=== PATIENT | male | born 1975 | race Caucasian/White ===

== ENCOUNTER 2024-12-05 10:36 | Inpatient (IN) | payer BC, SELFPAY ==
[2024-12-05] VITALS (12 sets, daily range): BP systolic 114–154; BP diastolic 77–110; BMI 27.6
--- NOTE | 2024-12-05 07:41 | ED.GENMED ---
Addendum entered and electronically signed by LUIS FERNANDO Dean 12/05/24 13:06:
Cardiology evaluated patient, Dr. Mendez does recommend additional imaging including ultrasound of bilateral lower extremities for elevated D-dimer along with sed rate and CRP considering possible myocarditis, will also check COVID and flu
Original Note:
History of Present Illness
General
Chief Complaint: Chest Problem
Source: patient
Exam Limitations: none
Time Seen by Provider: 12/05/24 07:40
Nursing documentation reviewed up to this point in time: agreed with
History of Present Illness
History of Present Illness:
49-year-old male presents to the ER for evaluation. Patient reports for the past several weeks he has noted that he is very short winded with working out which is new for him. He does not have a family doctor and does not have this evaluated. He
also reports he has been anxious over his symptoms and has been waking up very early every morning around 430 this morning. Patient woke up this morning and continues to feel shortness of breath is which is what prompted him to come to the ER. He
has no associated chest pain with symptoms. He denies any recent fever or chills. He was sick 2 weeks ago. No prior history of PE DVT. [place], denies any lower extremity swelling.
He does not smoke.
Review of Systems
Review of Systems
Allergies reviewed?: Yes
All Other Systems: ROS reviewed and negative except as documented in HPI and ROS
Constitutional: Reports no symptoms; Denies fever, fatigue or chills
EENT: Reports no symptoms
Respiratory: Reports trouble breathing
Cardiac: Reports no symptoms; Denies chest pain, diaphoresis, palpitations or syncope
ABD/GI: Reports no symptoms
: Reports no symptoms
Musculoskeletal: Reports no symptoms
Skin: Reports no symptoms
Neurological: Reports no symptoms
Psychiatric: Reports no symptoms
Phy Exam
General Physical Exam
General Presentation: no apparent distress
General age: appears stated age
General Skin: warm and dry
General Habitus: normal
General Mental: alert
General Hydration: appears well hydrated
Cardiovascular Exam
Cardiovascular Exam: tachycardia
Pulmonary Exam
Pulmonary Exam: no respiratory distress and other (crackles to right base and right middle lobe )
Neurological Exam
Neurological Exam: alert and oriented x3
Musculoskeletal Exam
Musculoskeletal Exam: full ROM
Skin Exam
Skin Exam: normal color and warm/dry
Psychiatric Exam
Psychiatric Exam: normal mood/affect
Course
Orders/Labs/Results
Orders:
Orders
12/05/24 07:12
EKG [Electrocardiogram (*1)] Urgent
Reason for Study: Tachycardia
12/05/24 07:13
EKG- Treatment ONCE
12/05/24 07:36
Complete Blood Count/With Diff Urgent
Comprehensive Metabolic Panel Urgent
D-Dimer Urgent
NT-proBNP Urgent
Comment: ADD ON
Troponin I Urgent
12/05/24 07:49
Chest [CR Chest - 2 Views ] Urgent
Comment:
Reason For Exam: sob
12/05/24 08:08
Add On- LAB Urgent
Tests Added?: bnp
12/05/24 08:57
CT Chest PE Study Urgent
Comment:
Reason For Exam: sob
Abnormal Lab Results
12/05/24
07:36
WBC 11.3 H 10^3/uL
(4.8-10.8)
MCH 32.7 H pg
(27.0-31.0)
Abs Immat Gran (auto) 0.1 H 10^3/uL
(0-0.05)
Absolute Neuts (auto) 8.3 H 10^3/uL
(1.4-6.5)
Absolute Monos (auto) 0.9 H 10^3/uL
(0.1-0.6)
Lymphocytes % 15.9 L %
(20.5-51.1)
D-Dimer 0.66 H ug/mlFEU
(0.00-0.50)
Sodium 124 L mmol/L
(135-145)
Chloride 89 L mmol/L
(98-107)
Glucose 150 H mg/dl
(70-99)
Total Bilirubin 1.7 H mg/dl
(0.2-1.3)
12/05/24 07:36
12/05/24 07:36
Vital Signs
Initial and Last Documented VS:
Initial Vital Signs
Temp Pulse Resp BP Pulse Ox
97.7 F 124 18 141/99 100
12/05/24 07:10 12/05/24 07:10 12/05/24 07:10 12/05/24 07:10 12/05/24 07:10
Last Documented Vital Signs
Temp Pulse Resp BP Pulse Ox
97.7 F 120 31 134/107 96
12/05/24 07:10 12/05/24 09:00 12/05/24 09:00 12/05/24 07:27 12/05/24 07:30
Poultry Pathologist consulted with Physician
Poultry Pathologist consulted with physician?: Yes
Name of Physician Consulted: Lorelei
MDM/Problems Addressed
Differential Diagnosis Includes:
Not limited to ACS, PE, CHF, illness
MDM/Problems Addressed:
Patient is a 49-year-old male with no past medical history presents for increasing shortness of breath over the past several weeks. Patient is no cardiac history does not smoke he has noticed shortness of breath with working out which is not
typical for patient. He presents tachycardic no lower extremity swelling however does have crackles throughout his lung hsu. Patient's BNP is elevated at 4300 his D-dimer was minimally bumped. CAT scan ordered and does show findings consistent
with heart failure/cardiomegaly. Patient was ordered Lasix. Case discussed with admitting hospitalist as well as cardiology. Instantly sodium was also found to be low at 124 with a normal potassium normal renal function.
*Radiology
Radiology exam reviewed: radiology read reviewed
*Pulse Oximetry
Patient hypoxic: no
*EKG
Interpreted by ED Provider?: Yes
Interpretation: abnormal
Comparison EKG: no comparison EKG present
Heart Rate: 120
Rate: tachycardiac
Rhythm: sinus
Ischemia: non-specific ST changes
*Critical Care Note
Total Time (30-74mins, 75-104mins- exclusive of procedures): Not Applicable
ED Attending Note
-
Portions of this chart may have been created with voice recognition software.� Occasional wrong word or��sound alike� substitutions may have occurred due to the inherent limitations of voice recognition software.
Discharge Plan
Departure
Patient Disposition: Admit
Date of Disposition: 12/05/24
Time of Disposition: 09:59
Admit to: Telemetry
Admit to doctor: hospitalist
Presentation/result/management discussed w/ accepting MD/DO: Hospitalist
Patient with high blood pressure during this ER visit?: Yes
Condition: Fair
Covid-19: Not Applicable
Discharge Problem:
Congestive heart failure (CHF)
Referrals:
UNKNOWN - PT DOES,NOT KNOW [Family Provider] -
Interventions
Interventions:
*Risk Screen - Suicide Last Done: 12/05/24 07:38
*General Assessment Last Done: 12/05/24 07:38
*Neglect/Abuse Screening Last Done: 12/05/24 07:38
*ED- Fall Risk Assessment Last Done: 12/05/24 07:38
*ED COVID-19 Vaccine History Last Done: 12/05/24 07:38
ED- Cardiac Assessment Last Done: 12/05/24 07:38
ED- Pulmonary Assessment Last Done: 12/05/24 07:38
Discharge Date and Time
Print Language: MALIAN
[2024-12-05 07:51] LABS: % Basophils 0.8 % (0-2); % Eosinophils 1.4 % (0-6); % Immature Granulocytes 0.5 % (0-0.5); % Lymphocytes 15.9 % (20.5-51.1); % Monocytes 8.3 % (1.7-9.3); % Neutrophils 73.1 % (42.2-75.2); Absolute Basophils 0.1 10^3/uL (0-0.2); Absolute Eosinophils 0.2 10^3/uL (0-0.7); Absolute Immature Granulocytes 0.1 10^3/uL (0-0.05); Absolute Lymphocytes 1.8 10^3/uL (1.2-3.4); Absolute Monocytes 0.9 10^3/uL (0.1-0.6); Absolute Neutrophils 8.3 10^3/uL (1.4-6.5); Hematocrit 44.9 % (39.0-52.0); Hemoglobin 16.1 g/dL (13.0-18.0); Mean Corp Hgb Conc. 35.9 g/dL (33.0-37.0); Mean Corpuscular Hgb 32.7 pg (27.0-31.0); Mean Corpuscular Volume 91.1 fL (80.0-94.0); Nucleated Red Blood Cells % 0 % (-); Platelet Count 268 10^3/uL (130-400); Red Blood Cell Count 4.93 10^6/uL (4.70-6.10); Red Cell Dist. Width 11.9 % (11.5-14.5); White Blood Cell Count 11.3 10^3/uL (4.8-10.8)
[2024-12-05 08:03] LABS: ALT (SGPT) 40 U/L (0-50); AST (SGOT) 50 U/L (17-59); Albumin 3.8 g/dl (3.5-5.0); Alkaline Phosphatase 63 U/L (38-126); Blood Urea Nitrogen 10 mg/dl (9-20); Calcium 8.9 mg/dl (8.4-10.2); Carbon Dioxide 23 mmol/L (22-30); Chloride 89 mmol/L (98-107); Glucose 150 mg/dl (70-99); Potassium 4.8 mmol/L (3.5-5.1); Sodium 124 mmol/L (135-145); Total Bilirubin 1.7 mg/dl (0.2-1.3); Total Protein 6.3 g/dl (6.3-8.2); eGFR > 60.00
[2024-12-05 08:14] LABS: Troponin I 0.031 ng/ml
[2024-12-05 08:50] LABS: D-Dimer 0.66 ug/mlFEU (0.00-0.50)
[2024-12-05 08:52] LABS: NT-proBNP 4300 pg/ml
[2024-12-05] MEDS: LASIX 40 MG IV ×3 (10:05→22:03)
--- NOTE | 2024-12-05 10:31 | HPS.HSE ---
Family Physician
-
Family Physician: NOT KNOW UNKNOWN - PT DOES
Chief Complaint
-
Dyspnea on exertion
History of Present Illness
49-year-old male with no past medical history here complaining of dyspnea on exertion for the past 2 weeks. No chest pain. Denies ankle swelling. Has had a hard time getting his workouts done due to shortness of breath, usually goes for 3 mile
runs 5 days a week.
He states he had flulike symptoms 2 weeks ago with bodyaches and cough but resolved. Not sure if he had a fever. Did not do COVID testing.
Woke up at 4 AM this morning feeling anxious and short of breath and came into the emergency room.
Denies past medical history. Does not have a primary care doctor. Not on medications at home.
He works as a chiropractor.
Medical History
Past Medical History
Past Medical History: Reports None
Past Surgical History: Reports Orthopedic
Social History
Tobacco: Former Smoker (Quit smoking 30 years ago)
Alcohol: Occasional
Drug: None
Employment: Employed
Family History
Family History: Not pertinent
Allergies / Home Medications
Allergies reflects when Allergies were last updated in [employer].
Home Medications with original date entered in [employer]
Allergy/Medication List:
Allergies
Allergy/AdvReac Type Severity Reaction Status Date / Time
clindamycin Allergy Unknown Verified 12/05/24 08:48
none
Review of Systems
-
History Source: Patient
A 12 point ROS was completed and negative except as noted: Yes
Physical Exam
Vital Signs
Vital Signs
Temp Pulse Resp BP Pulse Ox
97.7 F 122 16 144/101 96
12/05/24 07:10 12/05/24 10:06 12/05/24 10:11 12/05/24 10:06 04/18/25 10:06
Physical Exam
General: Well Developed, Well Nourished, No Apparent Distress and Comfortable
HEENT: NormoCephalic, Anicteric and Moist mucous membranes
Respiratory: Rales
Cardiac: S1/S2 and Regular Rhythm
GI: Soft, Non Tender and Non Distended
Genito-urinary: Deferred by me
Musculoskeletal: No Clubbing, No Cyanosis and No Edema
Skin: Warm and Dry
Neuro: AO x 3
Hematologic/Lymphatic: No Lymphadenopathy
Psych: Calm
Laboratory Results
-
12/05/24 07:36
12/05/24 07:36
Laboratory Results
Total Bilirubin 1.7 mg/dl (0.2-1.3) H 12/05/24 07:36
AST 50 U/L (17-59) 12/05/24 07:36
ALT 40 U/L (0-50) 12/05/24 07:36
Alkaline Phosphatase 63 U/L (38-126) 12/05/24 07:36
Troponin I 0.031 ng/ml 12/05/24 07:36
Impression/Plan
-
Acute heart failure exacerbation -unknown type. Admit to IVU. Continue IV Lasix. Consult cardiology. First episode of congestive heart failure.
Anticipate ischemic workup and cardiac catheterization. Defer to cardiology.
EKG with sinus tachycardia, left atrial enlargement. Nonspecific ST-T wave changes laterally. Troponin negative.
CT chest negative for pulmonary embolism, cardiomegaly and moderate pulmonary edema noted. Small right pleural effusion. Small amount of coronary calcification.
I reviewed chest x-ray myself, cardiomegaly noted with bilateral pulmonary edema.
Elevated blood pressure -likely undiagnosed and untreated essential hypertension. Recommend monitoring blood pressure closely. Should start checking his pressures at home, discussed with patient.
Hyponatremia -suspect related to heart failure. Monitor sodium closely on diuretics.
Hyperglycemia -glucose 150 this morning. Check hemoglobin A1c.
Full code
--- NOTE | 2024-12-05 10:53 | CON.CAR ---
Addendum entered and electronically signed by Sahil Molina DO 12/05/24 16:34:
Addendum:
Echocardiogram demonstrated severely dilated LV with severely reduced LV systolic function EF of 20% with enlarged RV and reduced systolic function. PASP 70 to 75 mmHg with dilated aortic root sinus of Valsalva 4.0 cm. In the setting of patient's
sinus tachycardia and new cardiomyopathy, patient to benefit from right heart catheterization to better assess fluid status and monitor cardiac output in the setting of possible pending cardiogenic shock with newly diagnosed CM. I discussed the
case with Dr. Saul Jackson who agreed with right heart catheterization, aggressive diuresis over the weekend with careful monitoring by Ragley-Jimy catheter and when euvolemic, ischemic workup. Patient NPO.
Addendum entered and electronically signed by Sahil Molina DO 12/05/24 14:07:
Addendum:
Physical exam should read:
GENERAL: no acute distress, anxious
EYE: sclera anicteric
NECK: Supple, no JVD, no carotid bruit appreciated
ENT: normal nose, moist mucosal membranes
CARDIAC: Tachycardic rate and regular rhythm, +S1/S2, no murmur, rubs, or gallops
CHEST/PULMONARY: Normal effort, bibasilar crackles, nonlabored
ABDOMEN: Soft, without focal tenderness or distention
NEUROLOGICAL: Alert and oriented x3
SKIN: Warm and dry, no rash; no lower extremity swelling; no calf tenderness bilaterally
PSYCH: Normal and appropriate interaction.
Addendum entered and electronically signed by Sahil Molina DO 12/05/24 14:05:
I saw and examined the patient.
The Channel Turner's note was reviewed and I agree with the note.
Comment:
Patient resting comfortably in chair, notably anxious. Patient reported shortness of breath on admission however notes that this is improved and does not report any shortness of breath at this time. Patient denies chest discomfort/tightness,
palpitations, lightheadedness, dizziness, near-syncope, syncope, PND, orthopnea, edema, calf pain, or weakness. Patient states that he had an upper respiratory infection/6 weeks ago which is resolved. Additionally, he notes worsening shortness of
breath over that timeframe. Patient states that in discussion with his , he also experienced similar symptoms in September while skiing. He notes that his shortness of breath acutely worsened over the last week following a flight to [place] and
returned home.
GENERAL: no acute distress
EYE: sclera anicteric
NECK: Supple, no JVD, no carotid bruit appreciated
ENT: normal nose, moist mucosal membranes
CARDIAC: Regular rate and rhythm, +S1/S2, no murmur, rubs, or gallops
CHEST/PULMONARY: Normal effort, clear breath sounds
ABDOMEN: Soft, without focal tenderness or distention
NEUROLOGICAL: Alert and oriented x3
SKIN: Warm and dry, no rash
PSYCH: Normal and appropriate interaction.
Telemetry shows sinus rhythm/sinus tachycardia
EKG shows sinus tachycardia possible LVH possible lateral T wave abnormality
Troponin negative x2 (0.031-> 0.029), D-dimer elevated 0.66, BNP [address] scan showing no evidence of PE, cardiomegaly/moderate CHF with interstitial/alveolar edema, very small right pleural effusion. Small amount of coronary calcification, low-attenuation mediastinal adenopathy which may be related to CHF, question
posttraumatic changes of proximal left humerus
A/P as below
Discussed with the emergency room, recommending obtaining lower extremity Dopplers, inflammation markers, and infectious viral panel. Unclear etiology at this time for patient's acute volume overload/heart failure presentation. Possible, with
recent viral infection, this could relate to a myocarditis or possible nonischemic cardiomyopathy however etiology at this time is still unknown. Patient reporting improvement with diuretic therapy and denies any chest discomfort. Troponins
negative. Will obtain 2D echocardiogram to assess cardiac size, shape, function, and valvular anatomy. Pending results of echocardiogram, continue IV diuresis. Patient blood pressure also remains elevated which may play a role in this and
therefore, may benefit from initiation of BP therapy following result from echocardiogram (ANGEL/ARB/ARNI pending result).
Monitor on telemetry
Monitor intake and output, daily weight
Further recommendations to follow
Original Note:
Consultation
Consultation Request
Date/Time Consultation Requested: 12/05/2024
Date/Time Consultation Performed: 12/05/2024
Requesting Provider: Dr. Solis
Performing Provider: Sole Espinoza PA-C for Dr. John
Reason for Consultation: CHF
Medical History
-
History of Present Illness:
HPI: Zach is a 49-year-old male with no significant nature presents to ER for evaluation of worsening shortness of breath with exertion. He typically is very active and runs on a daily basis. 2 weeks ago he started to notice that he was becoming
more winded when running. He cut down the speed with which he was running, but continued to have symptoms. Then this week he states he was unable to tolerate running at all due to significant shortness of breath. This morning he woke up and felt
short of breath and significantly anxious, prompting ER evaluation. In ER, he was noted to be hypertensive and tachycardic. Lab work revealed elevated proBNP of 4300 with a troponin of 0.031. D-dimer also elevated slightly at 0.66. He had chest
x-ray and CT of chest. CT of chest was negative for PE, but did note moderate CHF. EKG revealed sinus tachycardia with heart rates in the 120s. He has been persistently tachycardic on review of telemetry. He denies any chest pain, palpitations,
dizziness, lightheadedness, lower extremity edema, diaphoresis, nausea, or fevers. He did have flulike symptoms 2 weeks ago that improved after a few days. He notes no prior history of hypertension, but states recently when he was at his dentist
his blood pressure was elevated. In ER currently he feels fairly well, but is somewhat anxious. Notes some improvement with his breathing in ER after given 1 dose of Lasix.
PMH:
None
Past Medical History
Past Medical History: Other (In HPI)
Past Surgical History: Orthopedic (ACL repair)
Social History
Tobacco: Former Smoker (Social smoker 30 years ago)
Alcohol: Occasional
Drug: None
Personal:
Living: With Family
Employment: Employed (chiropractor)
Family History
Family History: CAD (Father had GA)
Allergies / Home Medications
Allergy/AdvReac Type Severity Reaction Status Date / Time
clindamycin Allergy Unknown Verified 12/05/24 08:48
Review of Systems
-
History Source: Patient
All other systems: Negative unless noted
Physical Exam
Vital Signs
Temp Pulse Resp BP Pulse Ox
97.7 F 122 16 144/101 96
12/05/24 07:10 12/05/24 10:06 12/05/24 10:11 12/05/24 10:06 12/05/24 10:06
Lab Results
12/05/24 07:36
12/05/24 07:36
Troponin I 0.031 ng/ml 12/05/24 07:36
[id number]-[id number] Pept 4300 pg/ml 12/05/24 07:36
Physical Exam
General: Well Developed, Well Nourished and No Apparent Distress
HEENT: Normocephalic, Anicteric and Moist Mucous Membranes
Respiratory: Crackles and Non Labored Respirations
Cardiac: S1/S2 and Regular Rhythm
Musculoskeletal: No Clubbing, No Cyanosis and No Edema
Skin: Warm and Dry
Neuro: AO x 3 and Nonfocal/Grossly Intact
Psych: Calm
Impression / Plan
-
PCP: None
[employer] Application Administrator: None prior to admission
Impression:
Presented with BRADY
Acute HF unknown EF
Sinus tachycardia
Hyponatremia
Elevated BP
Elevated D-dimer
Echo 12/05/2024: Study pending
Plan:
-Presented with 2 weeks of progressive dyspnea on exertion. proBNP elevated at 4300. CT of chest with moderate CHF. No PE.
-Continue IV Lasix 40 mg BID. Creat stable at 1.1
-Follow daily weights, I&O's.
-CHF education
-Check echo. EF unknown.
-EKG reviewed, sinus tachycardia. Remains tachycardic on review of telemetry.
-TSH pending
-Troponin 0.031 by initial check. Repeat trop to ensure not rising.
-Follow Na w/ diuresis
-No prior h/o heart failure. Will need eventual ischemic evaluation. Possible LHC later this admission. Await trop trends and echo results.
-BP elevation noted. suspect undiagnosed HTN. Will likely start BB, possible ANGEL/ARB pending echo results.
-Hgb A1c pending.
-Check CVE in AM.
HPI: Zach is a 49-year-old male with no significant nature presents to ER for evaluation of worsening shortness of breath with exertion. He typically is very active and runs on a daily basis. 2 weeks ago he started to notice that he was becoming
more winded when running. He cut down the speed with which he was running, but continued to have symptoms. Then this week he states he was unable to tolerate running at all due to significant shortness of breath. This morning he woke up and felt
short of breath and significantly anxious, prompting ER evaluation. In ER, he was noted to be hypertensive and tachycardic. Lab work revealed elevated proBNP of 4300 with a troponin of 0.031. D-dimer also elevated slightly at 0.66. He had chest
x-ray and CT of chest. CT of chest was negative for PE, but did note moderate CHF. EKG revealed sinus tachycardia with heart rates in the 120s. He has been persistently tachycardic on review of telemetry. He denies any chest pain, palpitations,
dizziness, lightheadedness, lower extremity edema, diaphoresis, nausea, or fevers. He did have flulike symptoms 2 weeks ago that improved after a few days. He notes no prior history of hypertension, but states recently when he was at his dentist
his blood pressure was elevated. In ER currently he feels fairly well, but is somewhat anxious. Notes some improvement with his breathing in ER after given 1 dose of Lasix.
Data Reviewed
-
EKG: Tracing Personally Visualized and interpreted
Radiology: Report Reviewed by me
CT Scan: Report Reviewed by me
Labs: Labs Reviewed by me
[2024-12-05 11:09] LABS: Glycohemoglobin (HgbA1c) 5.4 % (4.0-5.6)
[2024-12-05 12:04] LABS: TSH 2.41 uIU/ml (0.47-4.68)
[2024-12-05 12:06] LABS: Troponin I 0.029 ng/ml
--- NOTE | 2024-12-05 12:11 | ED.GENMED ---
History of Present Illness
General
Chief Complaint: Chest Problem
Time Seen by Provider: 12/05/24 07:40
Course
Orders/Labs/Results
Orders:
Orders
12/05/24 07:12
EKG [Electrocardiogram (*1)] Urgent
Reason for Study: Tachycardia
12/05/24 07:13
EKG- Treatment ONCE
12/05/24 07:36
Complete Blood Count/With Diff Urgent
Comprehensive Metabolic Panel Urgent
D-Dimer Urgent
Glycohemoglobin (HgbA1c) Urgent
NT-proBNP Urgent
Comment: ADD ON
TSH Urgent
Troponin I Urgent
12/05/24 07:49
Chest [CR Chest - 2 Views ] Urgent
Comment:
Reason For Exam: sob
12/05/24 08:08
Add On- LAB Urgent
Tests Added?: bnp
12/05/24 08:57
CT Chest PE Study Urgent
Comment:
Reason For Exam: sob
12/05/24 Lunch
2 Gram Sodium [Sodium, 2 Gram]
At Your Request: Full Participation
Furosemide [Lasix] 40 mg IV NOW STA
12/05/24 10:09
Add On- LAB Routine
Tests Added?: TSH, HgbA1c
12/05/24 10:27
Admit/Transfer Patient As Directed
Co-Sign Provider:
Level of Care: Inpatient admission
Assign to:: IVU
Physician / Group: Will
Diagnosis: Acute CHF
Reason for Hospitalization: IV Lasix, cardiology consult
Expected length of stay greater than two midnights?: Yes
ELOS- Estimated Length of Stay in days: 3
I certify the patient meets the requirements for IP care: Yes
PRN Pain Medication Management As Directed
May give lesser potent ordered pain med per pt: Yes
preference::
Protocol:: Medication orders for pain may be administered in a
manner that supports deferring to patient preference
when the pt is:
- Requesting an ordered lesser potent pain medication.
Least to most potent pain medications are defined
as: acetaminophen < NSAID < tramadol < opioids
(morphine, oxycodone, hydromorphone).
- Requesting a lesser dose of the same medication IF
ORDERED.
- Requesting a less intrusive route of administration
if both routes are prescribed by the provider (PO <
IV).
12/05/24 10:28
Code Status As Directed
Resuscitation Status: Full Code
Abnormal Lab Results
12/05/24
07:36
WBC 11.3 H 10^3/uL
(4.8-10.8)
MCH 32.7 H pg
(27.0-31.0)
Abs Immat Gran (auto) 0.1 H 10^3/uL
(0-0.05)
Absolute Neuts (auto) 8.3 H 10^3/uL
(1.4-6.5)
Absolute Monos (auto) 0.9 H 10^3/uL
(0.1-0.6)
Lymphocytes % 15.9 L %
(20.5-51.1)
D-Dimer 0.66 H ug/mlFEU
(0.00-0.50)
Sodium 124 L mmol/L
(135-145)
Chloride 89 L mmol/L
(98-107)
Glucose 150 H mg/dl
(70-99)
Total Bilirubin 1.7 H mg/dl
(0.2-1.3)
12/05/24 07:36
12/05/24 07:36
Vital Signs
Initial and Last Documented VS:
Initial Vital Signs
Temp Pulse Resp BP Pulse Ox
97.7 F 124 18 141/99 100
12/05/24 07:10 12/05/24 07:10 12/05/24 07:10 12/05/24 07:10 12/05/24 07:10
Last Documented Vital Signs
Temp Pulse Resp BP Pulse Ox
97.7 F 117 16 144/101 95
12/05/24 07:10 12/05/24 12:00 12/05/24 12:03 12/05/24 10:06 12/05/24 11:00
MDM/Problems Addressed
Differential Diagnosis Includes:
Not limited to PE, ACS
MDM/Problems Addressed:
Patient is a 49-year-old male who presented with increasing dyspnea on exertion some mild chest tightness but no chest pain for the past several weeks. Patient is very active and this is all new for him. Findings are consistent with CHF. Patient
has an elevated BNP ; chest x-ray shows cardiomegaly and moderate CHF with bilateral interstitial and alveolar edema. D-dimer was elevated and CAT scan ordered which confirms interstitial alveolar edema negative PE. Case reviewed with ED physician
IV Lasix ordered.
Patient admitted to the hospital service.
Patient was eval by cardiology Dr. Mendez who does recommend additional testing for viral myocarditis markers including sed rate CRP will also check COVID flu and ultrasound his legs bilaterally.
*Radiology
Radiology exam reviewed: radiology read reviewed
*Pulse Oximetry
Patient hypoxic: no
*EKG
Interpreted by ED Provider?: Yes
Heart Rate: 120
Rate: tachycardiac
Rhythm: sinus
Ischemia: non-specific ST changes
ED Attending Note
-
Portions of this chart may have been created with voice recognition software.� Occasional wrong word or��sound alike� substitutions may have occurred due to the inherent limitations of voice recognition software.
Discharge Plan
Departure
Patient Disposition: Admit
Date of Disposition: 12/05/24
Time of Disposition: 09:59
Admit to: Telemetry
Admit to doctor: hospitalist
Presentation/result/management discussed w/ accepting MD/DO: Hospitalist
Patient with high blood pressure during this ER visit?: Yes
Condition: Fair
Covid-19: Not Applicable
Discharge Problem:
Congestive heart failure (CHF)
Interventions
Interventions:
*Risk Screen - Suicide Last Done: 12/05/24 07:38
*General Assessment Last Done: 12/05/24 07:38
*Neglect/Abuse Screening Last Done: 12/05/24 07:38
*ED- Fall Risk Assessment Last Done: 12/05/24 07:38
*ED COVID-19 Vaccine History Last Done: 12/05/24 07:38
ED- Cardiac Assessment Last Done: 12/05/24 07:38
ED- Pulmonary Assessment Last Done: 12/05/24 07:38
[2024-12-05 13:19] LABS: Erythrocyte Sed Rate 1 mm/hour (0-20)
[2024-12-05 13:32] LABS: COVID-19 Antigen Negative (Negative)
[2024-12-05 15:25] LABS: Osmolality Serum 281 mOsm/kg (275-300)
[2024-12-05 16:15] LABS: Osmolality Urine 293 mOsm/kg (300-900)
--- NOTE | 2024-12-05 16:18 | W.PN.UPDATE ---
Addendum entered and electronically signed by Sahil Molina DO 12/05/24 16:43:
Agreed with below; see addendum on consult as well.
Original Note:
Update Note
Progress Note Update
Echo results reviewed. New CM with EF 20%. Reviewed findings w/ patient and family in room. Discussed weakened heart muscle and plan for RHC today with likely LHC later in admission following diuresis, possibly Sunday. He remains anxious, but
otherwise is stable without any change. No chest pain. Breathing stable at rest. BP and HR remain elevated. Keep NPO.
[2024-12-05 16:28] LABS: Urine Sodium 20 mmol/L (30-90)
--- NOTE | 2024-12-05 18:37 | ITS.CL.CATH ---
Digital Sales Manager - Catheterization
Cardiac Catheterization
Procedure Report:
RIGHT HEART CATHETERIZATION
Date of Procedure: December 05, 2024
Referring: Dr. Sahil Molina
INDICATION: Newly diagnosed cardiomyopathy
Hemodynamics (mmHg):
RA (m) : 10
RV (s/d,m) : 60/7
PA (s/d, m) : 64/33, 46
PCWP (m) : 31
Ao cuff pressure: 136/90, 108
Cardiac Output : 3.5 L/min and Cardiac Index : 1.7 L/min/m-2
Systemic vascular resistance: 28 Wood units or 2240 [id number](-5)
Pulmonary vascular resistance: 4.3 Wood units or 343 [id number](-5)
SEDATION: 32 minutes of procedural sedation was utilized. An independent medical records clerk was present to assist with and help manage the patient's level of consciousness and physiologic status
RADIATION SUMMARY: Fluoro Time (min): 0.9, Dose (mGy): 10.4, DAP (Gy.cm2) : 1.5
CONCLUSION:
1. Elevated left ventricular filling pressures and reduced cardiac output and cardiac index
Copy to: Dr. Sahil Molina
[2024-12-05] MEDS: LOVENOX 40 MG SC (19:26)
[2024-12-05] MEDS: COZAAR 25 MG PO (19:26)
--- NOTE | 2024-12-05 21:00 | PTCARENOTE ---
Pt arrived to ICU room 3367 via bed from screedman/laborer at 1851. RIJ [place] catheter in place, PAP and CVP zeroed once hooked up. Pt not on any continuous drips. Pt on RA with SpO2 95%. Crackles auscultated b/l throughout but pt denies SOB. ST
120s-130s on monitor. See nursing shift assessment flowsheet for full physical assessment details. Admission database completed. Lasix 40mg IV x1 ordered for 2200. Call valdez and personal items within reach.
[2024-12-05] MEDS: MELATONIN 10 MG PO (23:13)
[2024-12-06] VITALS (24 sets, daily range): BP systolic 95–139; BP diastolic 69–109; BMI 27.2; BMI 26.9
--- NOTE | 2024-12-06 00:23 | PTCARENOTE ---
Physical assessment mostly unchanged, pt still with crackles upon auscultation, R>L at this point, but overall less pronounced. Still ST on monitor but HR 100-110. Pt requesting melatonin for sleep, ordered/administered, see EMAR. SpO2 dropping to
mid 80s once pt sleeping, placed on 2LNC, SpO2 now 96%. C.O. and C.I. numbers obtained, see VS documentation.
[2024-12-06 04:18] LABS: % Basophils 0.7 % (0-2); % Eosinophils 0.7 % (0-6); % Immature Granulocytes 0.6 % (0-0.5); % Monocytes 10.9 % (1.7-9.3); % Neutrophils 75.1 % (42.2-75.2); Absolute Basophils 0.1 10^3/uL (0-0.2); Absolute Eosinophils 0.1 10^3/uL (0-0.7); Absolute Immature Granulocytes 0.1 10^3/uL (0-0.05); Absolute Lymphocytes 1.3 10^3/uL (1.2-3.4); Absolute Monocytes 1.2 10^3/uL (0.1-0.6); Hematocrit 44.9 % (39.0-52.0); Hemoglobin 16.4 g/dL (13.0-18.0); Mean Corp Hgb Conc. 36.5 g/dL (33.0-37.0); Mean Corpuscular Hgb 32.9 pg (27.0-31.0); Mean Corpuscular Volume 90.2 fL (80.0-94.0); Nucleated Red Blood Cells % 0 % (-); Platelet Count 260 10^3/uL (130-400); Red Blood Cell Count 4.98 10^6/uL (4.70-6.10); Red Cell Dist. Width 11.8 % (11.5-14.5); White Blood Cell Count 10.7 10^3/uL (4.8-10.8)
--- NOTE | 2024-12-06 04:22 | PTCARENOTE ---
Assessment unchanged. ST low 100s on monitor. 95% on 2LNC. C.O./C.I. numbers obtained, see VS documentation for details.
[2024-12-06 05:16] LABS: ALT (SGPT) 40 U/L (0-50); AST (SGOT) 46 U/L (17-59); Albumin 3.8 g/dl (3.5-5.0); Alkaline Phosphatase 66 U/L (38-126); Blood Urea Nitrogen 17 mg/dl (9-20); Calcium 9.3 mg/dl (8.4-10.2); Carbon Dioxide 26 mmol/L (22-30); Chloride 95 mmol/L (98-107); Estimated Creatinine Clearance 76 ml/min; Glucose 112 mg/dl (70-99); HDL Cholesterol 45 mg/dl; LDL Cholesterol, Calculated 113 mg/dl; Potassium 3.8 mmol/L (3.5-5.1); Sodium 132 mmol/L (135-145); Total Bilirubin 2.2 mg/dl (0.2-1.3); Total Cholesterol 177 mg/dl (50-199); Total Protein 6.5 g/dl (6.3-8.2); Triglyceride 96 mg/dl (10-149); Very Low Density Lipoprotein 19 mg/dl (0-30); eGFR > 60.00
[2024-12-06] MEDS: LASIX 40 MG IV ×2 (07:41→16:19)
[2024-12-06] MEDS: COZAAR 25 MG PO ×2 (07:41→20:51)
--- NOTE | 2024-12-06 07:46 | W.PN.HOSP.TC ---
Today's Communication/Plan
-
Continue current care
Assessment / Plan
Assessment / Plan
Gen-AAOx3, NAD
HEENT-NC, AT, anicteric, clear oral mm
Neck-supple
CV-reg, no M, +S1/S2
Lungs-clear B/L
Abd-soft, NT, ND
Ext-no edema
Musculoskeletal-no cyanosis, clubbing
Skin-warm and dry
Neuro-grossly non-focal
Psych-calm, cooperative
Acute heart failure reduced EF exacerbation -new diagnosis of CHF. Clinically improving, shortness of breath resolved. Continue IV Lasix.
Echocardiogram shows LVEF 20%, global hypokinesis, severely reduced left ventricular systolic function, severely dilated LA, moderate TR. PA pressure 70 to 75 mmHg.
Right heart catheterization completed, PCWP 31, cardiac index 1.7. [place]-Jimy catheter remains in place.
Anticipate left heart catheterization, timing to be determined.
EKG with sinus tachycardia, left atrial enlargement. Nonspecific ST-T wave changes laterally. Troponin negative.
CT chest negative for pulmonary embolism, cardiomegaly and moderate pulmonary edema noted. Small right pleural effusion. Small amount of coronary calcification.
I reviewed chest x-ray myself, cardiomegaly noted with bilateral pulmonary edema.
Elevated blood pressure -likely undiagnosed and untreated essential hypertension. Recommend monitoring blood pressure closely. Should start checking his pressures at home, discussed with patient.
Started on losartan 25 mg daily.
Hyponatremia -suspect related to heart failure. Sodium improved to 132.
Hyperglycemia -likely stress response. Hemoglobin A1c 5.4%.
Full code
Anticipated Discharge: > 48 hours
Subjective/Interval History
-
Date of Service: December 06, 2024
Patient seen and examined. Feels better, denies shortness of breath. No complaints.
Objective Data
-
Labs:
Laboratory Results
12/05/24 12/06/24 12/06/24
20:29 04:06 07:40
WBC 10.7
Hgb 16.4
Hct 44.9
Plt Count 260
PT Cancelled Pending
INR Cancelled Pending
APTT Cancelled Pending
Sodium 132 L D
Potassium 3.8
Chloride 95 L
Carbon Dioxide 26
BUN 17
Creatinine 1.1
Glucose 112 H
Calcium 9.3
Total Bilirubin 2.2 H
AST 46
ALT 40
Alkaline Phosphatase 66
Vital Signs:
Vital Signs
Temp Pulse Resp BP Pulse Ox
98.5 F 112 20 139/100 95
12/06/24 07:19 12/06/24 07:41 12/06/24 07:00 12/06/24 07:41 12/06/24 07:19
I&O
12/05/24 12/06/24 12/07/24
06:59 06:59 06:59
Intake Total 980 / 990
Output Total 3500 / 3500
Balance -2520 / -2510
Review of Systems
-
History Source: Patient
All other systems: Reviewed and negative
[2024-12-06 08:22] LABS: Direct Bilirubin 0.6 mg/dl (0.0-0.4); Magnesium 1.9 mg/dl (1.6-2.3)
--- NOTE | 2024-12-06 08:24 | CON.INTV ---
Consultation
Consultation Request
Date/Time Consultation Requested: 12/05/2024 - 1952
Date/Time Consultation Performed: 12/06/2024819
Requesting Provider: LUIS FERNANDO Braga
Performing Provider: Dr. Morris
Reason for Consultation: Acute HFrEF with [facility]
Medical History
-
Chief Complaint: SOB
History of Present Illness:
49-year-old male former tobacco smoker with no significant past medical history who presented with shortness of breath + chest tightness. Patient runs as a hobby and noticed shortness of breath during a morning run. He has also been unable to
tolerate his workouts at the gym lately. He usually goes for a 3 mile run 5 days a week. He did have flulike symptoms 2 weeks ago with bodyaches and cough but those symptoms have resolved. He did not go to the doctor at that time with no flu, RSV
or COVID testing. In the ER, he was afebrile to 97.7 �F, pulse rate 124, respiratory rate 18, BP 141/99 and saturating 100% on room air. Initial labs showed mild leukocytosis to 11.3, sodium 124, T. bili 1.7, CRP 35.3, proBNP 4300, TSH 2.41 and
COVID-19 antigen negative. CXR showed bilateral interstitial + alveolar edema. CTA chest showed no evidence of PE, with cardiomegaly and interstitial + alveolar edema with a small right-sided pleural effusion. He was given 40 mg IV Lasix in the
ER and admitted to the IVU for acute decompensated heart failure. Lower extremity duplex showed no signs of DVT. Cardiology was consulted; echo showed severely reduced LV systolic function with EF 20%, with reduced RV systolic function and RV
enlargement. There was moderate TR, mild MR, dilated aortic root with sinus of Valsalva 4 cm, IVC was dilated and the PASP was markedly elevated at 70-75 mmHg assuming an RAP of 15 mmHg. Cardiology brought him to the Continuing Education Instructor for an RHC showing a
PCWP of 31 and a transpulmonary gradient of 13. His cardiac index was reduced at 1.7, with elevated SVR at 28 Wood units. PVR was 4.3 Benítez units. He was started on diuretics and transferred to the ICU for further care with [facility]
consulted for additional management/recommendations.
When I saw the patient this morning he was resting in bed in no acute distress. He says he feels much better with improved shortness of breath. Legs are now back to normal. CO/CI currently 3.8/2, with heart rate 102, PAP 26/17 and BP 112/88 via
NIBP. His [id number], Carlos, was at bedside and all questions were answered. Patient currently denies chest pain, JO, abdominal pain, nausea, diarrhea, fevers or chills.
PMHx: Former tobacco smoker
PSHx: Right knee arthroscopy, wisdom teeth
Past Medical History
Past Medical History: Other (Above as per HPI)
Past Surgical History: Other (Above as per HPI)
Social History
Tobacco: Former Smoker (Quit 30 years ago)
Drug: None
Employment: Employed (Chiropractor)
Family History
Family History: Reviewed & Not Pertinent
Allergies / Home Medications
Allergies
Allergy/AdvReac Type Severity Reaction Status Date / Time
clindamycin Allergy Unknown Verified 12/05/24 08:48
Home Medications
�Medication �Instructions �Recorded �Confirmed �Last Taken �Type
therapeutic multivitamin 1 tab PO DAILY 12/05/24 12/05/24 Unknown History
Review of Systems
-
History Source: Patient
All other systems: Negative unless noted
Vitals / Labs / Diagnostic Testing
Vital Signs
Temp Pulse Resp BP Pulse Ox
98.5 F 105 12 116/83 93
12/06/24 07:19 12/06/24 10:00 12/06/24 10:00 12/06/24 10:00 12/06/24 10:00
Lab Data
12/06/24 04:06
12/06/24 04:06
Laboratory Results
12/05/24 12/06/24
20:29 07:40
PT Cancelled 15.5 H
INR Cancelled 1.20
APTT Cancelled 32.9
Microbiology
12/05/24 13:07 Nasal Swab Influenza Types A & B ([facility]) - Final
Negative for Influenza A & B, NAAT
Negative results must be combined with clinical observations
and patient history.
Nucleic Acid Amplification test (NAAT)performed on the
gamigo platform.
Diagnostic Testing:
Physical Exam
-
HEENT: Normocephalic, Anicteric and Moist Mucous Membranes
Cardiovascular: S1/S2 and Peripheral Edema (negative)
Respiratory: Wheeze (negative), Rales (Bibasilar), Rhonchi (negative) and Non-Labored Respirations
GI: Soft, Non Distended, Non Tender and Normal Bowel Sounds
Neurology: AO x 3 and Tremors (negative)
Skin: Warm and Dry
General: Respiratory Distress (negative), Comfortable, Fever (negative) and Chills (negative)
Assessment
-
Assessment: 49-year-old male former tobacco smoker with no significant past medical history who presented with shortness of breath + chest tightness. Patient runs as a hobby and noticed shortness of breath during a morning run. He has also been
unable to tolerate his workouts at the gym lately. He usually goes for a 3 mile run 5 days a week. He did have flulike symptoms 2 weeks ago with bodyaches and cough but those symptoms have resolved. He did not go to the doctor at that time with
no flu, RSV or COVID testing. In the ER, he was afebrile to 97.7 �F, pulse rate 124, respiratory rate 18, BP 141/99 and saturating 100% on room air. Initial labs showed mild leukocytosis to 11.3, sodium 124, T. bili 1.7, CRP 35.3, proBNP 4300, TSH
2.41 and COVID-19 antigen negative. CXR showed bilateral interstitial + alveolar edema. CTA chest showed no evidence of PE, with cardiomegaly and interstitial + alveolar edema with a small right-sided pleural effusion. He was given 40 mg IV Lasix
in the ER and admitted to the IVU for acute decompensated heart failure. Lower extremity duplex showed no signs of DVT. Cardiology was consulted; echo showed severely reduced LV systolic function with EF 20%, with reduced RV systolic function and
RV enlargement. There was moderate TR, mild MR, dilated aortic root with sinus of Valsalva 4 cm, IVC was dilated and the PASP was markedly elevated at 70-75 mmHg assuming an RAP of 15 mmHg. Cardiology brought him to the [facility] Education Instructor for an RHC showing
a PCWP of 31 and a transpulmonary gradient of 13. His cardiac index was reduced at 1.7, with elevated SVR at 28 Wood units. PVR was 4.3 Benítez units. He was started on diuretics and transferred to the ICU for further care with [facility]
consulted for additional management/recommendations.
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
Impression:
#Acute HFrEF
#Recent URI
#Valvular heart disease with mild MR, moderate TR
#Severe pulmonary hypertension which is predominantly due to acute left-sided heart failure
#Hypochloremic, hyponatremia likely due to reduced PO intake in the setting of hypervolemia from acute CHF
#Hyperbilirubinemia likely due to congestive hepatopathy
#Former tobacco smoker
Plan:
- Unclear what caused his acute cardiomyopathy; possibly his recent viral URI; no signs of Takotsubo's on his echo which showed biventricular heart failure with LVEF 20% and severe pulmonary hypertension with PASP 70-75. RHC confirmed left-sided
heart failure with wedge 31, mPAP 43mmHg and TPmmHg with PVR: 4.3 MASTERSON and SVR: 28 MASTERSON
- CTA chest from 12/05/2024 was negative for an acute PE, with intralobular/interlobular septal thickening with a small right-sided pleural effusion and perihilar pulmonary edema
- We should repeat imaging in 24�4 8 hours to assess for improvement in his lung parenchyma
- Continue with diuresis while monitoring [place] numbers - currently on 40 mg IV Lasix BID
- Replete electrolytes with K>4, Mg>2
- Follow daily weights and strict I/O
- Defer ischemic evaluation to cardiology who are planning for LHC next week
- Continue with ASA
- Defer starting GDMT to cardiology
- Patient's LDL is 113 from 12/06/2024 with HDL 45, TG 96 and total cholesterol 177 --> defer starting a statin to cardiology
- Maintain SpO2 >90-94%
- prn nebulized bronchodilators - not currently bronchospastic
- Incentive spirometer encouraged 10x per hour for at least 4 hrs a day
- Maintain MAP>65
- Maintain euglycemia with goal BG 140-180
- Trend H/H and transfuse if needed to keep Hb>8g/dL; keep plt>20k, unless there is concern for bleeding then keep plt>50k
- DVT ppx: LMWH
Continue ICU level care for this critically ill patient with [place]-Jimy directed diuresis
Critical care statement: A total of 38 minutes of critical care time was provided for this patient today. This includes management of unstable vital signs, evaluation of the patient at bedside, reviewing the patient's pertinent medical records
including radiographs, microbiology, laboratory evaluations, and discussion with primary team, consultants, pharmacy, nutrition, physical therapy, case management, charge nurse, critical care nursing, and respiratory therapy.
Data:
CTA Chest 12/05/2024:
1. No pulmonary embolism identified.
2. Cardiomegaly and moderate CHF with interstitial and alveolar edema. Very small right pleural effusion.
3. At least a small amount of coronary artery calcification.
4. Low-attenuation mediastinal adenopathy which is likely related to the CHF.
5. Question posttraumatic changes proximal left humerus as above.
--- NOTE | 2024-12-06 08:31 | PTCARENOTE ---
recd pt 0715 handoff in room. Assessed as noted, pt in no distress, reports symptoms improved from yesterday. Reviewed plan, expectations, questions answered. Seen by Dr. Solis. Urine is justo. pulmonary artery readings obtained, no wedge,
used PAD for calc. CO obtained. Call valdez in reach.
[2024-12-06 08:36] LABS: PT 15.5 Sec (11.4-14.6)
[2024-12-06 08:37] LABS: APTT 32.9 Sec (23.4-35.0)
--- NOTE | 2024-12-06 08:57 | W.PN.CARDCBS ---
Addendum entered and electronically signed by Lucas Duran MD 12/06/24 09:47:
Patient seen and examined
Reviewed his right heart catheterization numbers yesterday and today via his Allevyn [place] catheter
SVR remains 2200 with cardiac index 1.9 and he had good diuresis overnight with clinical stability 2.2 L negative with blood pressure 130/90
Agree with PA-C note and assessment
Agree with PA-C plan
Exam:
Appears in no acute distress
Right IJ cordis
Right IJ [place] catheter
Alert and x 3
Nonfocal neurologically
JVP 7
Cor regular with S3 and tachycardic without murmur
Lungs clear to auscultation but diminished at the bases
Abdomen soft nontender positive bowel sounds
No extremity edema
PCP: None
Tool And Die Inspector: None prior to admission�evaluated by Dr. Molina
Impression:
Presented with BRADY
Acute HFrEF
Cardiomyopathy, EF 20%
Sinus tachycardia
Hyponatremia
Elevated BP
Elevated D-dimer
Echo 12/05/2024: EF 20%, global hypokinesis, severely dilated LA, mild MR, moderate TR, estimated PAP 70 to 75 mmHg, dilated aortic root with sinus of Valsalva measuring 4.0 cm
RHC 12/05/2024: RA (m) : 10, RV (s/d,m) : 60/7, PA (s/d, m) : 64/33, 46, PCWP (m) : 31, Ao cuff pressure: 136/90, 108, Cardiac Output : 3.5 L/min and Cardiac Index : 1.7 L/min/m-2
Plan:
-Presented with 3-4 weeks of progressive dyspnea on exertion. Admitted with acute heart failure exacerbation. proBNP elevated at 4300. CT of chest with moderate CHF. No PE. Possible viral illness about a month ago
-Echo 12/05/2024 showed EF 20%.
-RHC 12/05/2024 showed wedge of 31 with cardiac index 1.7 on 418 and reviewed 419 numbers with bedside nursing.
-Continue diuresis with IV Lasix 40 mg twice daily. Creat stable at 1.1. Reports improvement in his breathing today, feeling much better.
-Weight down 3 pounds overnight to 173 pounds. Continue to follow daily weights, I&O's. Will leave the [place]y catheter in another day and may consider removing this on 12/07 or 12/08
-CHF education
-New to losartan this admission. Will increase to 25 mg twice daily 12/06. Consider eventual addition of low-dose Coreg in a day or 2.
-Given new CM and new heart failure we will plan for LHC early next week either Sunday or Sunday. Will give aspirin 325 mg today and continue aspirin 81 mg daily. Hemoglobin stable at 16.4
-TSH wnl at 2.41.
-Initial troponin 0.031 and trending down thereafter.
-Na improving w/ diuresis.
-Hgb A1c 5.4%. Will add Jardiance or Farxiga prior to discharge
Original Note:
Today's Communication / Plan
-
Continue diuresis with IV lasix 40mg BID
Increase losartan to 25mg BID
Start aspirin 324 mg today, 81mg daily
Eventual LHC early next week
Impression / Plan
-
PCP: None
Tool And Die Inspector: None prior to admission
Impression:
Presented with BRADY
Acute HFrEF
Cardiomyopathy, EF 20%
Sinus tachycardia
Hyponatremia
Elevated BP
Elevated D-dimer
Echo 12/05/2024: EF 20%, global hypokinesis, severely dilated LA, mild MR, moderate TR, estimated PAP 70 to 75 mmHg, dilated aortic root with sinus of Valsalva measuring 4.0 cm
RHC 12/05/2024: RA (m) : 10, RV (s/d,m) : 60/7, PA (s/d, m) : 64/33, 46, PCWP (m) : 31, Ao cuff pressure: 136/90, 108, Cardiac Output : 3.5 L/min and Cardiac Index : 1.7 L/min/m-2
Plan:
-Presented with 2 weeks of progressive dyspnea on exertion. Admitted with acute heart failure exacerbation. proBNP elevated at 4300. CT of chest with moderate CHF. No PE.
-Echo 12/05/2024 showed EF 20%.
-RHC 12/05/2024 showed wedge of 31 with cardiac index 1.7.
-Continue diuresis with IV Lasix 40 mg twice daily. Creat stable at 1.1. Reports improvement in his breathing today, feeling much better.
-Weight down 3 pounds overnight to 173 pounds. Continue to follow daily weights, I&O's.
-CHF education
-New to losartan this admission. Will increase to 25 mg twice daily 12/06. Consider eventual addition of low-dose Coreg.
-Given new CM and new heart failure we will plan for LHC early next week. Will give aspirin 325 mg today and continue aspirin 81 mg daily. Hemoglobin stable at 16.4
-TSH wnl at 2.41.
-Initial troponin 0.031 and trending down thereafter.
-Na improving w/ diuresis.
-Hgb A1c 5.4%.
HPI: Zach is a 49-year-old male with no significant nature presents to ER for evaluation of worsening shortness of breath with exertion. He typically is very active and runs on a daily basis. 2 weeks ago he started to notice that he was becoming
more winded when running. He cut down the speed with which he was running, but continued to have symptoms. Then this week he states he was unable to tolerate running at all due to significant shortness of breath. This morning he woke up and felt
short of breath and significantly anxious, prompting ER evaluation. In ER, he was noted to be hypertensive and tachycardic. Lab work revealed elevated proBNP of 4300 with a troponin of 0.031. D-dimer also elevated slightly at 0.66. He had chest
x-ray and CT of chest. CT of chest was negative for PE, but did note moderate CHF. EKG revealed sinus tachycardia with heart rates in the 120s. He has been persistently tachycardic on review of telemetry. He denies any chest pain, palpitations,
dizziness, lightheadedness, lower extremity edema, diaphoresis, nausea, or fevers. He did have flulike symptoms 2 weeks ago that improved after a few days. He notes no prior history of hypertension, but states recently when he was at his dentist
his blood pressure was elevated. In ER currently he feels fairly well, but is somewhat anxious. Notes some improvement with his breathing in ER after given 1 dose of Lasix.
Progress Note - Tool And Die Inspector
Subjective
Date of Service: December 06, 2024
Breathing feeling much improved
Objective
Labs:
12/06/24 04:06
12/06/24 04:06
Labs
Hgb 16.4 g/dL (13.0-18.0) 12/06/24 04:06
Hct 44.9 % (39.0-52.0) 12/06/24 04:06
Plt Count 260 10^3/uL (130-400) 12/06/24 04:06
PT 15.5 Sec (11.4-14.6) H 12/06/24 07:40
INR 1.20 12/06/24 07:40
APTT 32.9 Sec (23.4-35.0) 12/06/24 07:40
Sodium 132 mmol/L (135-145) L D 12/06/24 04:06
Potassium 3.8 mmol/L (3.5-5.1) 12/06/24 04:06
BUN 17 mg/dl (9-20) 12/06/24 04:06
Creatinine 1.1 mg/dL (0.7-1.3) 12/06/24 04:06
Glucose 112 mg/dl (70-99) H 12/06/24 04:06
Troponins
12/05/24 12/05/24 12/05/24
07:36 11:19 19:15
Troponin I 0.031 0.029 Cancelled
Vital Signs and I&O:
Vital Signs
Temp Pulse Resp BP Pulse Ox
98.5 F 103 12 130/100 93
12/06/24 07:19 12/06/24 08:00 12/06/24 08:00 12/06/24 08:00 12/06/24 08:00
Vital Signs
Temp Pulse Resp BP Pulse Ox
98.5 F 103 12 130/100 93
12/06/24 07:19 12/06/24 08:00 12/06/24 08:00 12/06/24 08:00 12/06/24 08:00
Intake & Output
12/04/24 12/05/24 12/06/24 12/07/24
06:59 06:59 06:59 06:59
Intake Total 980 / 990 140 / 140
Output Total 3500 / 3500 850 / 850
Balance -2520 / -2510 -710 / -710
Physical Exam
Physical Exam
GEN: No distress, awake, alert, oriented x3
HEENT: supple, anicteric, mmm
LUNGS: Few crackles at bases, no wheezes
CV: Reg, tachy, S1/S2, no murmur
EXT: No clubbing, cyanosis, or edema
NEURO: Gross non-focal
SKIN: Warm, dry, no rash
[2024-12-06] MEDS: LOW STRENGTH ASPIRIN 324 MG PO (09:23)
--- NOTE | 2024-12-06 10:47 | PTCARENOTE ---
standing scale weight obtained. CHG cloth bath, own oral care, brushed. Reviewed importance of CHF weights, verbalizing understanding. Questions answered.
--- NOTE | 2024-12-06 14:23 | PTCARENOTE ---
Dr. Duran updated earlier with noon PA readings and Xray findings. Activity order clarified with Dr. Morris, pt OOB to recliner. Visitors at bedside.
--- NOTE | 2024-12-06 16:24 | CM ---
CM following re: discharge planning.
Reviewed pt's chart, met with pt and pt's spouse at bedside.
Pt is a 49 year old male, admitted with primary dx of Acute CHF.
Pt reports he lives with spouse in a 2SH, has 2 supportive children. 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
PCP: pt stated [facility] will go to [facility] [facility]. Did not have PCP;
[facility]: [facility]
D/C plan: home with anticipated no needs.
CM will follow with discharge plan updates as hospitalization progresses
[2024-12-06] MEDS: LOVENOX 40 MG SC (17:32)
--- NOTE | 2024-12-06 18:23 | PTCARENOTE ---
back to bed, resting, occas dampened PA waveform with certain positions. when laying neutral with mild HOB elevation, waveform tracing is much improved. ate dinner. no distress.
--- NOTE | 2024-12-06 18:37 | PTCARENOTE ---
swan waveform PA tracing dampened. patient repositioned in bed without change. Able to flush both PA and CVP. Radiology notified of need for xray, have reached out to both pan operator and manager php and awaiting further plan. no distress, no
other change.
--- NOTE | 2024-12-06 20:11 | PTCARENOTE ---
Assumed care of pt at 1900. Pt is A/O x4, pleasant and cooperative with care. No c/o pain or SOB. [place] Jimy catheter remains in place, PAP waveform not consistent, sometimes will read well with pressures 20s/teens, dampened at other times, sometimes
does not read at all, line has been flushed/zeroed but does not make much of a difference. Esequiel GOULD and Dr. Morris at bedside to assess line, decision to keep line in at this time unless signs of obvious migration such as ectopy, pt
having lightheadedness, etc. SR/ST on monitor, anywhere from 80s-low 100s. SpO2 96-97% on room air while awake, pt does have periods of apnea while sleeping, discussed with pt that he made need to wear nasal cannula again tonight if his SpO2 goes
down while asleep. Lungs are clear, slightly diminished at bases, no crackles auscultated. See nursing shift assessment flowsheet for full physical assessment details. Call valdez and personal items within reach.
[2024-12-07] VITALS (21 sets, daily range): BP systolic 95–129; BP diastolic 68–103; BMI 26.6
--- NOTE | 2024-12-07 01:40 | PTCARENOTE ---
Midnight assessment unchanged. Hemodynamic numbers obtained. Pt has been sleeping most of the shift. SR 90s/ST 100s on monitor.
[2024-12-07 03:48] LABS: ALT (SGPT) 40 U/L (0-50); AST (SGOT) 47 U/L (17-59); Alkaline Phosphatase 60 U/L (38-126); Blood Urea Nitrogen 27 mg/dl (9-20); Calcium 8.9 mg/dl (8.4-10.2); Carbon Dioxide 23 mmol/L (22-30); Chloride 100 mmol/L (98-107); Estimated Creatinine Clearance 70 ml/min; Glucose 104 mg/dl (70-99); Potassium 3.8 mmol/L (3.5-5.1); Sodium 134 mmol/L (135-145); Total Bilirubin 1.9 mg/dl (0.2-1.3); Total Protein 6.5 g/dl (6.3-8.2); eGFR > 60.00
--- NOTE | 2024-12-07 06:04 | PTCARENOTE ---
0400 assessment unchanged. [place] still with dampened waveform, will frequently read 'PAP disconnected', has been zeroed several times throughout the shift. Rhythm unchanged on monitor. Has been sleeping intermittently throughout the shift.
[2024-12-07] MEDS: LASIX 40 MG IV ×2 (07:26→15:40)
[2024-12-07] MEDS: LOW STRENGTH ASPIRIN 81 MG PO (07:26)
[2024-12-07] MEDS: COZAAR 25 MG PO ×2 (07:26→19:15)
--- NOTE | 2024-12-07 07:31 | W.PN.HOSP.TC ---
Today's Communication/Plan
-
Continue current care
Transfer to IVU review if [place]-Jimy catheter removed
Assessment / Plan
Assessment / Plan
Gen-AAOx3, NAD
HEENT-NC, AT, anicteric, clear oral mm
Neck-supple
CV-reg, no M, +S1/S2
Lungs-clear B/L
Abd-soft, NT, ND
Ext-no edema
Musculoskeletal-no cyanosis, clubbing
Skin-warm and dry
Neuro-grossly non-focal
Psych-calm, cooperative
Acute heart failure reduced EF exacerbation -new diagnosis of CHF. Clinically improving, shortness of breath resolved. Continue IV Lasix. Weight is down since admission. ED weight recorded as 87 kg, 76 kg today.
Echocardiogram shows LVEF 20%, global hypokinesis, severely reduced left ventricular systolic function, severely dilated LA, moderate TR. PA pressure 70 to 75 mmHg.
Right heart catheterization completed, PCWP 31, cardiac index 1.7. [place] catheter remains in place.
Anticipate left heart catheterization, timing to be determined. Concern for CAD induced cardiomyopathy. Viral myocarditis possible but seems less likely.
EKG with sinus tachycardia, left atrial enlargement. Nonspecific ST-T wave changes laterally. Troponin negative.
CT chest negative for pulmonary embolism, cardiomegaly and moderate pulmonary edema noted. Small right pleural effusion. Small amount of coronary calcification.
I reviewed chest x-ray myself, cardiomegaly noted with bilateral pulmonary edema.
Elevated blood pressure -likely undiagnosed and untreated essential hypertension. Recommend monitoring blood pressure closely. Should start checking his pressures at home, discussed with patient.
Blood pressure now improving on losartan 25 mg twice daily.
Hyponatremia -suspect related to heart failure. Sodium improved to 134.
Hyperglycemia -likely stress response. Hemoglobin A1c 5.4%.
Full code
Anticipated Discharge: > 48 hours
Subjective/Interval History
-
Date of Service: December 07, 2024
Patient seen and examined. Denies shortness of breath.
Objective Data
-
Labs:
Laboratory Results
12/07/24
03:22
Sodium 134 L
Potassium 3.8
Chloride 100
Carbon Dioxide 23
BUN 27 H
Creatinine 1.2
Glucose 104 H
Calcium 8.9
Total Bilirubin 1.9 H
AST 47
ALT 40
Alkaline Phosphatase 60
Vital Signs:
Vital Signs
Temp Pulse Resp BP Pulse Ox
99.2 F 112 16 114/103 91
12/07/24 03:32 12/07/24 07:26 12/07/24 06:00 12/07/24 07:26 12/07/24 06:00
I&O
12/06/24 12/07/24 12/08/24
06:59 06:59 06:59
Intake Total 980 / 990 1500 / 1500
Output Total 3500 / 3500 2475 / 2475
Balance -2520 / -2510 -975 / -975
Review of Systems
-
History Source: Patient
All other systems: Reviewed and negative
--- NOTE | 2024-12-07 07:50 | PTCARENOTE ---
recd pt, assessed. reviewed plan for the day. Seen by Drs. Solis and Renee.
--- NOTE | 2024-12-07 08:21 | W.PN.CARDCBS ---
Addendum entered and electronically signed by Lucas Duran MD 12/07/24 08:26:
I have no objection to transfer to IVU or IMU today
Original Note:
Today's Communication / Plan
-
Continue IV diuresis
Tolerating increased afterload reduction
Low-dose Coreg tomorrow
Left heart cath tomorrow
Can DC [place]
Impression / Plan
-
PCP: None
Front End Architect: None prior to admission
Impression:
Presented with BRADY
Acute HFrEF
Cardiomyopathy, EF 20%
Sinus tachycardia
Hyponatremia
Elevated BP
Elevated D-dimer
Echo 12/05/2024: EF 20%, global hypokinesis, severely dilated LA, mild MR, moderate TR, estimated PAP 70 to 75 mmHg, dilated aortic root with sinus of Valsalva measuring 4.0 cm
RHC 12/05/2024: RA (m) : 10, RV (s/d,m) : 60/7, PA (s/d, m) : 64/33, 46, PCWP (m) : 31, Ao cuff pressure: 136/90, 108, Cardiac Output : 3.5 L/min and Cardiac Index : 1.7 L/min/m-2
Plan:
-Presented with 2 weeks of progressive dyspnea on exertion. Admitted with acute heart failure exacerbation. proBNP elevated at 4300. CT of chest with moderate CHF. No PE.
-Echo 12/05/2024 showed EF 20%.
-RHC 12/05/2024 showed wedge of 31 with cardiac index 1.7.
-Continue diuresis with IV Lasix 40 mg twice daily. Creat stable. Reports improvement in his breathing today, feeling much better.
-CHF education
-New to losartan this admission. Continue losartan at 25 mg twice daily. Will add low-dose Coreg to start tomorrow
-Given new CM and new heart failure we will plan for [facility] tentatively Sunday. Will give aspirin 325 mg today and continue aspirin 81 mg daily. Hemoglobin stable at 16.4
-TSH wnl at 2.41.
-Initial troponin 0.031 and trending down thereafter.
-Na improving w/ diuresis.
-Hgb A1c 5.4%.
HPI: Zach is a 49-year-old male with no significant nature presents to ER for evaluation of worsening shortness of breath with exertion. He typically is very active and runs on a daily basis. 2 weeks ago he started to notice that he was becoming
more winded when running. He cut down the speed with which he was running, but continued to have symptoms. Then this week he states he was unable to tolerate running at all due to significant shortness of breath. This morning he woke up and felt
short of breath and significantly anxious, prompting ER evaluation. In ER, he was noted to be hypertensive and tachycardic. Lab work revealed elevated proBNP of 4300 with a troponin of 0.031. D-dimer also elevated slightly at 0.66. He had chest
x-ray and CT of chest. CT of chest was negative for PE, but did note moderate CHF. EKG revealed sinus tachycardia with heart rates in the 120s. He has been persistently tachycardic on review of telemetry. He denies any chest pain, palpitations,
dizziness, lightheadedness, lower extremity edema, diaphoresis, nausea, or fevers. He did have flulike symptoms 2 weeks ago that improved after a few days. He notes no prior history of hypertension, but states recently when he was at his dentist
his blood pressure was elevated. In ER currently he feels fairly well, but is somewhat anxious. Notes some improvement with his breathing in ER after given 1 dose of Lasix.
Progress Note - Front End Architect
Subjective
Date of Service: December 07, 2024
Breathing is better
Objective
Labs:
12/06/24 04:06
12/07/24 03:22
Labs
Hgb 16.4 g/dL (13.0-18.0) 12/06/24 04:06
Hct 44.9 % (39.0-52.0) 12/06/24 04:06
Plt Count 260 10^3/uL (130-400) 12/06/24 04:06
PT 15.5 Sec (11.4-14.6) H 12/06/24 07:40
INR 1.20 12/06/24 07:40
APTT 32.9 Sec (23.4-35.0) 12/06/24 07:40
Sodium 134 mmol/L (135-145) L 12/07/24 03:22
Potassium 3.8 mmol/L (3.5-5.1) 12/07/24 03:22
BUN 27 mg/dl (9-20) H 12/07/24 03:22
Creatinine 1.2 mg/dL (0.7-1.3) 12/07/24 03:22
Glucose 104 mg/dl (70-99) H 12/07/24 03:22
Troponins
12/05/24 12/05/24 12/05/24
07:36 11:19 19:15
Troponin I 0.031 0.029 Cancelled
Vital Signs and I&O:
Vital Signs
Temp Pulse Resp BP Pulse Ox
98.8 F 115 23 114/103 98
12/07/24 07:40 12/07/24 07:30 12/07/24 07:30 12/07/24 07:26 12/07/24 07:23
Vital Signs
Temp Pulse Resp BP Pulse Ox
98.8 F 115 23 114/103 98
12/07/24 07:40 12/07/24 07:30 12/07/24 07:30 12/07/24 07:26 12/07/24 07:23
Intake & Output
12/05/24 12/06/24 12/07/24 12/08/24
06:59 06:59 06:59 06:59
Intake Total 980 / 990 1500 / 1510 70 / 70
Output Total 3500 / 3500 2475 / 2475
Balance -2520 / -2510 -975 / -965 70 / 70
Physical Exam
Physical Exam
����Physical Exam
���������������������General:��no apparent distress, not acutely ill
���������������������������Neck:��supple. no meningeal signs. normal psoterior pharynx
������������������������
���������������������������Heart:��s1/s2 regular rate and rhythm, no murmur. equal radial pulses.
Right IJ Cordis and [place] in place
��������������������������Lungs: ��no acute respiratory distress. clear bilaterally
����������������������Abdomen:�normal bowel sounds. not tender. no CVAT
��������������������������Neuro:��alert and oriented. no focal neurological deficits
������������������������������Skin: ��no rash
�����������������������Psychiatric:�well kept. interactive and cooperative
�����������������������Extremities:��no edema. no calf tenderness. negative homans. good distal pulses
��
�
--- NOTE | 2024-12-07 08:30 | W.PN.INTV ---
Today's Communication / Plan
Recommendations
Up OOB as tolerated
Encourage incentive spirometer
GDMT as per cardiology
NPO past midnight for left heart cath
Continue diuresis with strict I/O and trend UOP
Patient is stable for downgrade out of ICU to IVU. No additional recommendations at this time. Information Assurance Analyst/Pulmonary service will now sign off. Please reconsult if there are any additional questions/concerns, or if patient's respiratory status
deteriorates.
Assessment
-
Assessment: 49-year-old male former tobacco smoker with no significant past medical history who presented with shortness of breath + chest tightness. Patient runs as a hobby and noticed shortness of breath during a morning run. He has also been
unable to tolerate his workouts at the gym lately. He usually goes for a 3 mile run 5 days a week. He did have flulike symptoms 2 weeks ago with bodyaches and cough but those symptoms have resolved. He did not go to the doctor at that time with
no flu, RSV or COVID testing. In the ER, he was afebrile to 97.7 �F, pulse rate 124, respiratory rate 18, BP 141/99 and saturating 100% on room air. Initial labs showed mild leukocytosis to 11.3, sodium 124, T. bili 1.7, CRP 35.3, proBNP 4300, TSH
2.41 and COVID-19 antigen negative. CXR showed bilateral interstitial + alveolar edema. CTA chest showed no evidence of PE, with cardiomegaly and interstitial + alveolar edema with a small right-sided pleural effusion. He was given 40 mg IV Lasix
in the ER and admitted to the IVU for acute decompensated heart failure. Lower extremity duplex showed no signs of DVT. Cardiology was consulted; echo showed severely reduced LV systolic function with EF 20%, with reduced RV systolic function and
RV enlargement. There was moderate TR, mild MR, dilated aortic root with sinus of Valsalva 4 cm, IVC was dilated and the PASP was markedly elevated at 70-75 mmHg assuming an RAP of 15 mmHg. Cardiology brought him to the Chief Digital Media Officer for an RHC showing
a PCWP of 31 and a transpulmonary gradient of 13. His cardiac index was reduced at 1.7, with elevated SVR at 28 Wood units. PVR was 4.3 Benítez units. He was started on diuretics and transferred to the ICU for further care with Information Assurance Analyst services
consulted for additional management/recommendations.
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
Impression:
#Acute HFrEF
#RV enlargement with reduced RV systolic function
#Recent URI
#Valvular heart disease with mild MR, moderate TR
#Severe pulmonary hypertension which is predominantly due to acute left-sided heart failure
#Hypochloremic, hyponatremia likely due to reduced PO intake in the setting of hypervolemia from acute CHF
#Hyperbilirubinemia likely due to congestive hepatopathy
#Former tobacco smoker
Plan:
- Unclear what caused his acute cardiomyopathy; possibly his recent viral URI; no signs of Takotsubo's on his echo which showed biventricular heart failure with LVEF 20% and severe pulmonary hypertension with PASP 70-75. RHC confirmed left-sided
heart failure with wedge 31, mPAP 43mmHg and TPmmHg with PVR: 4.3 MASTERSON and SVR: 28 MASTERSON
- [place]-Jimy catheter now removed
- CTA chest from 12/05/2024 was negative for an acute PE, with intralobular/interlobular septal thickening with a small right-sided pleural effusion and perihilar pulmonary edema
- We should repeat imaging in 24�48 hours to assess for improvement in his lung parenchyma - will order CXR for tomorrow
- Continue with diuresis while monitoring [place] numbers - currently on 40 mg IV Lasix BID
- Replete electrolytes with K>4, Mg>2
- Follow daily weights and strict I/O
- Defer ischemic evaluation to cardiology who are planning for LHC tomorrow
- Continue with ASA
- Defer starting GDMT to cardiology
- Patient's LDL is 113 from 12/06/2024 with HDL 45, TG 96 and total cholesterol 177 --> defer starting a statin to cardiology
- Maintain SpO2 >90-94%
- prn nebulized bronchodilators - not currently bronchospastic
- Incentive spirometer encouraged 10x per hour for at least 4 hrs a day
- Maintain MAP>65
- Maintain euglycemia with goal BG 140-180
- Trend H/H and transfuse if needed to keep Hb>8g/dL; keep plt>20k, unless there is concern for bleeding then keep plt>50k
- DVT ppx: LMWH
Patient is stable for downgrade out of ICU to IVU. No additional recommendations at this time. Information Assurance Analyst/Pulmonary service will now sign off. Thank you for allowing us to be involved in the care of this patient. Please reconsult if there are
any additional questions/concerns, or if patient's respiratory status deteriorates.
Data:
CTA Chest 12/05/2024:
1. No pulmonary embolism identified.
2. Cardiomegaly and moderate CHF with interstitial and alveolar edema. Very small right pleural effusion.
3. At least a small amount of coronary artery calcification.
4. Low-attenuation mediastinal adenopathy which is likely related to the CHF.
5. Question posttraumatic changes proximal left humerus as above.
Transthoracic echocardiogram 12/05/2024:
Left ventricle is dilated. Normal left ventricular wall thickness. Global
hypokinesis. Severely reduced left ventricular systolic function. LV ejection
fraction is 20% by [place]'s method of discs.
Enlarged right ventricular size. Reduced right ventricular systolic function.
Severely dilated LA.
Mild mitral regurgitation.
Moderate tricuspid regurgitation. Estimated pulmonary artery pressure of 70-75
mmHg assuming a right atrial pressure of 15 mmHg.
Dilated aortic root. Sinus of Valsalva measures 4.0 cm. Ascending aorta not
well visualized.
The IVC is dilated and does not collapse.
No prior study for comparison.
Total time spent today was 58 minutes for this encounter. Time includes reviewing laboratory test/imaging results, reviewing pertinent medical records, obtaining and reviewing medical history, performing an appropriate exam, ordering medications,
tests and procedures. Time also includes documentation of this encounter, coordinating patient care and communicating with other healthcare professionals. Total time does not include separately billed tests performed on this date of service.
Subjective Dataa
Subjective Data
Date of Service:
Date of Service: December 07, 2024
Chief Complaint: Information Assurance Analyst Follow Up
Subjective:
Patient was seen and evaluated today at bedside. He denies shortness of breath or chest pain. Right�IJ cordis in place. Heart rate 110, BP 115/86 and saturating 97% on room air. He feels well overall and is much improved although still not fully
back to his baseline. Currently denies chest pain, JO, nausea, fevers or chills.
Review of Systems
General: Other (Negative unless mentioned above)
Objective Data
Data Reviewed
Vital Signs / I&O / Oxygen:
Vital Signs
Temp Pulse Resp BP Pulse Ox
98.8 F 115 23 114/103 98
12/07/24 07:40 12/07/24 07:30 12/07/24 07:30 12/07/24 07:26 12/07/24 07:23
Intake and Output
12/06/24 12/07/24 12/08/24
06:59 06:59 06:59
Intake Total 980 / 990 1500 / 1510 320 / 320
Output Total 3500 / 3500 2475 / 2475
Balance -2520 / -2510 -975 / -965 320 / 320
SaO2 98
Physical Exam
General: Respiratory Distress (negative), Comfortable, Chills (negative) and Sweats (negative)
HEENT: Normocephalic and Anicteric
Cardiovascular: S1-S2, Peripheral Edema (negative) and Other (Tachycardic)
Respiratory: Wheeze (negative), Crackles (negative), Rhonchi (negative), Non-Labored Respirations and Stridor (negative)
GI: Soft, Non Distended, Non Tender and Normal Bowel Sounds
Neurology: AO x 3 and Tremors (negative)
Skin: Warm, Dry, Cyanosis (negative) and Jaundice (negative)
Labs/Micro/Reports
Lab Data
12/06/24 04:06
12/07/24 03:22
Microbiology
12/05/24 13:07 Nasal Swab Influenza Types A & B ([facility]) - Final
Negative for Influenza A & B, NAAT
Negative results must be combined with clinical observations
and patient history.
Nucleic Acid Amplification test (NAAT)performed on the
[employer] platform.
--- NOTE | 2024-12-07 10:17 | PTCARENOTE ---
[place]-Jimy catheter removed per MD order.
--- NOTE | 2024-12-07 10:43 | PTCARENOTE ---
self care in bathroom, gown changed. gait steady, feeling better after PA cath removed per MD order, cordis in place with KVO.
--- NOTE | 2024-12-07 12:54 | PTCARENOTE ---
Ambulated in hallway, tolerated, HR to 120, no SOB. back to room, resting in chair, no c/o.
[2024-12-07] MEDS: LOVENOX 40 MG SC (17:12)
--- NOTE | 2024-12-07 18:26 | TRANSFER ---
report to [facility] for transfer room 2243. taken via wc with all belongings and family to IVU. KVO via cordis continues.
--- NOTE | 2024-12-07 18:40 | PTCARENOTE ---
Received pt from ICU at 1820. Pt accompanied by his spouse. VSS. Pt w/ kvo infusing into his right IJ cordis. Oriented pt to IVU. Will monitor.
--- NOTE | 2024-12-07 20:44 | PTCARENOTE ---
Patient received at change of shift out of bed to the chair. Denies shortness of breath and/or chest pain. Only complaint offered is a 1/10 headache which is acceptable to the patient. Sinus tach on telemetry. Oxygen saturation 95% on room air.
Right IJ Cordis in place. CHG wipes completed. Plan of care discussed with patient and . Discussed NPO status. Call valdez within reach. Care ongoing.
[2024-12-07] MEDS: NSS 1000 IV (21:22)
[2024-12-08] VITALS (12 sets, daily range): BP systolic 97–154; BP diastolic 70–129; BMI 26.6
[2024-12-08 04:16] LABS: ALT (SGPT) 33 U/L (0-50); AST (SGOT) 34 U/L (17-59); Albumin 3.9 g/dl (3.5-5.0); Alkaline Phosphatase 60 U/L (38-126); Blood Urea Nitrogen 30 mg/dl (9-20); Calcium 9.1 mg/dl (8.4-10.2); Carbon Dioxide 25 mmol/L (22-30); Chloride 98 mmol/L (98-107); Estimated Creatinine Clearance 64 ml/min; Glucose 101 mg/dl (70-99); Sodium 135 mmol/L (135-145); Total Bilirubin 1.8 mg/dl (0.2-1.3); Total Protein 6.5 g/dl (6.3-8.2); eGFR > 60.00
[2024-12-08] MEDS: COREG 1.5625 MG PO ×2 (08:57→20:16)
[2024-12-08] MEDS: COZAAR 25 MG PO ×2 (08:58→20:16)
[2024-12-08] MEDS: LASIX 40 MG IV ×2 (08:58→16:25)
[2024-12-08] MEDS: LOW STRENGTH ASPIRIN 81 MG PO (09:01)
[2024-12-08] MEDS: THERAGRAN 1 TABLET PO (09:02)
--- NOTE | 2024-12-08 10:21 | PTCARENOTE ---
Pt picked up by laboratory chemical assistant staff and taken for card cath at 1000.
[2024-12-08 10:54] LABS: ACT-LR - POC 245 Seconds (116-155)
[2024-12-08 11:07] LABS: ACT-LR - POC 390 Seconds (116-155)
[2024-12-08 11:38] LABS: ACT-LR - POC 252 Seconds (116-155)
--- NOTE | 2024-12-08 11:55 | PTCARENOTE ---
Rec'd Pt s/p card cath at 1150. Pt A,A+Ox3, denies pain. R radial band in place, D+I. + radial pulse.
--- NOTE | 2024-12-08 14:01 | CM ---
Reviewed chart. Mr. Scott was transferred to IVU. Met with Mr. Scott to review discharge plans. Telephone call to his insurance to find his pharmacy benefit provider. He has [facility], Spoke with [facility] who states he has a
$600.00 deductible that has not been met. So his first script for Brilinta would be $442.20, then after that he would pay 25% of the cost of the medication, the lowest amount would be $50.00 and the highest amount would be $100.00 a month. He will
review with his spouse. Prior to admission he resides with his spouse in a two story home. Prior to admission he was independent with his ambulation and adls. Medical work-up in progress. The discharge plan is to return home with his spouse when
medically stable.
--- NOTE | 2024-12-08 14:19 | W.PN.HOSP.TC ---
Today's Communication/Plan
-
Continue with diuresis
Continue with aspirin/Brilinta/statin/Coreg
Trend creatinine
Await official cath report
Cardiology recs
Assessment / Plan
Assessment / Plan
Gen-AAOx3, NAD
HEENT-NC, AT, anicteric, clear oral mm
Neck-supple
CV-reg, no M, +S1/S2
Lungs-clear B/L
Abd-soft, NT, ND
Ext-no edema
Musculoskeletal-no cyanosis, clubbing
Skin-warm and dry
Neuro-grossly non-focal
Psych-calm, cooperative
Acute heart failure reduced EF exacerbation -new diagnosis of CHF.
CAD status post KIM
Continue IV Lasix. Weight is down since admission.
Echocardiogram shows LVEF 20%, global hypokinesis, severely reduced left ventricular systolic function, severely dilated LA, moderate TR. PA pressure 70 to 75 mmHg.
Right heart catheterization completed, PCWP 31, cardiac index 1.7. [place]-Jimy catheter removed
EKG with sinus tachycardia, left atrial enlargement. Nonspecific ST-T wave changes laterally. Troponin negative.
CT chest negative for pulmonary embolism, cardiomegaly and moderate pulmonary edema noted. Small right pleural effusion. Small amount of coronary calcification.
Awaiting official cath report-per pt 1 stent placement. Continue aspirin and Brilinta. Continue with high-dose statin
Probably require follow-up echocardiogram to assess for if any improvement ejection fraction.
Elevated blood pressure -likely undiagnosed and untreated essential hypertension. Recommend monitoring blood pressure closely.
Blood pressure now improving on losartan 25 mg twice daily. If bp can tolerate it consider increasing Coreg.
Hyponatremia -suspect related to heart failure. Sodium improved to 135. Resolved
Hyperglycemia -likely stress response. Hemoglobin A1c 5.4%.
Full code
Anticipated Discharge: Within 24 hours
Subjective/Interval History
-
Date of Service: December 08, 2024
seen post cardiac cath
no chest pain
mildly tachycardiac
Objective Data
-
Labs:
Laboratory Results
12/08/24
03:10
Sodium 135
Potassium 4.0
Chloride 98
Carbon Dioxide 25
BUN 30 H
Creatinine 1.3
Glucose 101 H
Calcium 9.1
Total Bilirubin 1.8 H
AST 34
ALT 33
Alkaline Phosphatase 60
Vital Signs:
Vital Signs
Temp Pulse Resp BP Pulse Ox
97.8 F 106 16 146/97 100
12/08/24 08:37 12/08/24 08:33 12/08/24 08:37 12/08/24 08:33 12/08/24 08:37
I&O
12/07/24 12/08/24 12/09/24
06:59 06:59 06:59
Intake Total 1500 / 1510 1670 / 1670
Output Total 2475 / 2475 1850 / 1850
Balance -975 / -965 -180 / -180
Data Reviewed
-
Total Time Spent with Patient (in minutes): 55
[2024-12-08] MEDS: LIPITOR 80 MG PO (17:46)
[2024-12-08] MEDS: LOVENOX SC (17:46)
--- NOTE | 2024-12-08 18:06 | ITS.CL.CATH ---
[facility] - Catheterization
Cardiac Catheterization
Procedure Report:
LEFT HEART CATH AND CORONARY INTERVENTION
Date of Procedure: December 08, 2024
Referring: Dr. Sahil Molina
PROCEDURES:
1. Left heart catheterization with coronary and single-plane left ventriculography
2. Successful stenting of the mid LAD with a 3.5 x 30 mm Ron stent that was implanted at nominal pressures and postdilated distally with a 3.5 mm noncompliant balloon and proximally with a 4.0 mm noncompliant balloon
3. Intravascular ultrasound
INDICATION: This is a 49-year-old gentleman who presented to [facility] for evaluation of exertional dyspnea starting approximately 2 months ago. He denies any substernal chest pressure. Serial troponin levels were obtained on admission
and peaked at 0.031 ng/mL which is in the 95th percentile for this laboratory. An echocardiogram was notable for severe LV dysfunction and estimated ejection fraction of 20% with moderate tricuspid regurgitation and severe pulmonary hypertension
with estimated pulmonary artery systolic pressures of 70-75 mmHg. Over the weekend he was diuresed and is feeling much better. He is now referred for coronary angiography.
ACCESS: Right radial artery, 6 Czech sheath
HEMODYNAMICS (mmHg):
AO (s/d, m) : 111/89
LV (s/d) : 109/13
LVEDP : 25
CORONARY FINDINGS
Dominance: Right
LEFT MAIN: Normal
LEFT ANTERIOR DESCENDING: The LAD arises normally from the left main is a large-caliber vessel. There is a complex high-grade stenosis in the mid LAD between the 1st and 2nd diagonal branches Jolley class 1,0,0. The second diagonal branch arises
at the distal aspect of the mid LAD stenosis and is a fairly large caliber diagonal branch. The mid LAD beyond the second diagonal branch has a 30% stenosis while the mid to distal LAD has only minor irregularities.
CIRCUMFLEX: The circumflex is a large-caliber nondominant vessel that supplies a single sizable bifurcating obtuse marginal branch. A small daughter branch which arises proximally has a 70% proximal stenosis at its origin from the obtuse marginal
branch but otherwise only minor irregularities
RIGHT CORONARY: The right coronary artery is a dominant vessel that has only minor luminal irregularities over its course. The PDA is large and noted to fill the apical LAD via right to left collaterals. The posterolateral branch is small and
widely patent
VENTRICULOGRAPHY: Not done
ANGIOPLASTY PROCEDURE DETAIL: At the conclusion of the diagnostic angiogram the decision was made to proceed with percutaneous revascularization of the high-grade stenosis in the mid LAD with a Jolley class of 1,0,0. A 180 mg loading dose of
ticagrelor was administered and heparin was given to maintain a therapeutic ACT. The origin of the left main was cannulated with a 6 Czech XB 3.5 guiding catheter. A short BMW guidewire was advanced across the very angulated mid LAD stenosis in
with a little luck was able to cross into the mid LAD and was advanced into the distal vessel. A second BMW guidewire was advanced into the large second diagonal branch. Balloon predilation was performed using a 2.0 mm compliant balloon which was
inflated in the mid LAD to nominal pressures.
Intravascular ultrasound was performed after balloon predilation with the distal reference diameter measuring just over 3.5 mm and the proximal reference diameter measuring around 4.3 mm.
A 3.5 x 30 mm Ron stent was positioned with angiographic and fluoroscopic guidance then implanted in the mid LAD at nominal pressures. The stent was postdilated distally with a 3.5 mm noncompliant balloon to high pressures and in the proximal to
midportion of the stent was postdilated with a 4.0 mm noncompliant balloon to 20 artemio with a nice angiographic result
SEDATION: 85 minutes of procedural sedation was utilized. An independent director biomedical engineering was present to assist with and help manage the patient's level of consciousness and physiologic status
RADIATION SUMMARY: Fluoro Time (min) 12.3:, Dose (mGy): 673, DAP (Gy.cm2) : 39
CONCLUSIONS
1. Successful stenting of the mid LAD with a 3.5 x 30 mm Arrington stent that was implanted at nominal pressures and postdilated in the mid and distal portion of the stent with a 3.5 mm noncompliant balloon to high pressures and in the proximal to
midportion of the stent with a 4.0 mm noncompliant balloon to high pressures
RECOMMENDATIONS
1. Uninterrupted dual antiplatelet therapy for 1 year
2. High intensity statin therapy for goal LDL cholesterol of 55 mg/dL or less
3. Guideline directed medical therapy for ischemic cardiomyopathy
4. Repeat echocardiogram in 40 to 90-days post revascularization to reassess LVEF. If LVEF remains significantly depressed on guideline directed medical therapy then an ICD should be considered
Copy to: Dr. Sahil Molina
[2024-12-08] MEDS: NSS 1000 IV (19:10)
[2024-12-08] MEDS: BRILINTA 90 MG PO (20:16)
--- NOTE | 2024-12-09 02:15 | PTCARENOTE ---
Pt. has had no complaints of CP/discomfort so far this shift, VSS, NSR- ST in the low 100's on the monitor. Right radial cath site dressing CDI without hematoma, radial pulse present and WNL. Pt. OOB to chair frequently and ambulatory in room.
Currently sleeping.
[2024-12-09 03:48] VITALS: BMI 26.3
[2024-12-09 03:50] VITALS: BP 109/78
[2024-12-09 04:55] LABS: Hematocrit 44.8 % (39.0-52.0); Mean Corp Hgb Conc. 35.7 g/dL (33.0-37.0); Mean Corpuscular Hgb 32.8 pg (27.0-31.0); Mean Corpuscular Volume 91.8 fL (80.0-94.0); Mean Platelet Volume 9.3 fL (7.4-10.4); Platelet Count 222 10^3/uL (130-400); Red Blood Cell Count 4.88 10^6/uL (4.70-6.10); Red Cell Dist. Width 11.9 % (11.5-14.5); White Blood Cell Count 10.3 10^3/uL (4.8-10.8)
[2024-12-09 05:11] LABS: Blood Urea Nitrogen 26 mg/dl (9-20); Carbon Dioxide 23 mmol/L (22-30); Chloride 98 mmol/L (98-107); Estimated Creatinine Clearance 70 ml/min; Glucose 106 mg/dl (70-99); Sodium 133 mmol/L (135-145); eGFR > 60.00
[2024-12-09 07:03] VITALS: BP 103/72
[2024-12-09] MEDS: COREG 1.5625 MG PO ×2 (09:18→11:04)
[2024-12-09] MEDS: LOW STRENGTH ASPIRIN 81 MG PO (09:19)
[2024-12-09] MEDS: THERAGRAN 1 TABLET PO (09:20)
[2024-12-09] MEDS: LASIX 40 MG IV (09:20)
[2024-12-09] MEDS: COZAAR 25 MG PO (09:20)
[2024-12-09] MEDS: BRILINTA 90 MG PO (09:20)
[2024-12-09 10:34] VITALS: BMI 26.3
--- NOTE | 2024-12-09 10:59 | CM ---
Reviewed chart. Met with Mr. Scott to review discharge plans. He states he is feeling well and maybe able to go home soon. We reviewed the co-pays for Brilinta 90 mg po bid again and he feels it is too much for him to afford. Updated Dr. Jackson
regarding his decision. Prior to admission he resides with his spouse in a two story home. Prior to admission he was independent with ambulation and adls. He has a prescription plan with [facility]. Medical work-up in progress. The discharge
plan is to return home with his spouse when medically stable.
[2024-12-09 11:02] VITALS: BP 107/85
--- NOTE | 2024-12-09 11:35 | PTCARENOTE ---
Order obtained to D/C R IJ cordis. Cordis removed by Sonia Eaton RN without incident. Pt raul well. R neck dsg remains D+I.
--- NOTE | 2024-12-09 12:28 | W.PN.CARDCBS ---
Addendum entered and electronically signed by Saul Jackson MD 12/09/24 14:07:
Attending addendum: Patient seen and examined. PA note reviewed and findings independently confirmed by me. s/p successful stenting of high grade mid LAD stenosis with a 3.5 x 30 mm [place] stent that was post dilated with a 3.5 mm and with a 4.0 mm
NC balloon. Cardiomyopathy with EF 20%.
-Uninterrupted dual antiplatelet therapy
-Increase Coreg to 3.125 mg bid and titrate as HR and blood pressure tolerate
-Continue ARB
-high intensity statin give coronary artery disease
-Not sure if LVEF will improve or not: Needs repeat echocardiogram in 90 days to determine if he needs ICD
-Close followup should be arranged in our office
Original Note:
Today's Communication / Plan
-
s/p LAD PCI
po lasix 40mg BID for 3 days then decrease to 40mg daily
plavix 600mg 12/10 then 75mg daily as of 12/11. NO brilinta. continue asa
continue coreg, cozaar
will need 90 day echo to reeval EF
BMP/proBNP in 1 week
OP cardiac follow up arranged
Impression / Plan
-
PCP: None
Fork Assembler: None prior to admission
Impression:
Presented with BRADY
Acute HFrEF
Cardiomyopathy, EF 20%
Sinus tachycardia
Hyponatremia
Elevated BP
Elevated D-dimer
Echo 12/05/2024: EF 20%, global hypokinesis, severely dilated LA, mild MR, moderate TR, estimated PAP 70 to 75 mmHg, dilated aortic root with sinus of Valsalva measuring 4.0 cm
RHC 12/05/2024: RA (m) : 10, RV (s/d,m) : 60/7, PA (s/d, m) : 64/33, 46, PCWP (m) : 31, Ao cuff pressure: 136/90, 108, Cardiac Output : 3.5 L/min and Cardiac Index : 1.7 L/min/m-2
Plan:
-Presented with 2 weeks of progressive dyspnea on exertion. Admitted with acute heart failure exacerbation. proBNP elevated at 4300. CT of chest with moderate CHF. No PE.
-Echo 12/05/2024 showed EF 20%.
-RHC 12/05/2024 showed wedge of 31 with cardiac index 1.7.
-he was diuresed through weekend and underwent LHC on 12/08 resulting in LAD PCI. peak trop 0.031. Cr stable at 1.2
-in SR with 1 6beat run of NSVT overnight on review of tele. coreg increased this AM to 3.125mg BID. K stable
-continue coreg, cozaar. consider addition of aldactone and SGLT2 inhibitor as OP as tolerated
-LVEDP by cath 12/08 was 25. will plan for DC on po lasix 40mg BID for 3 days then decrease to 40mg daily as of 12/12/24.
-brilinta is expensive to patient. he received dose this AM. will plan to transition to plavix. he will take 8 75mg tablets in AM for 600mg load then start 75mg daily as of 12/11, reviewed with patient today. continue asa
-BMP/proBNP in 1 week
-cardiac rehab. discussed activity restrictions/recommendations with patient
-will need repeat echo in 90 days to reevaluate EF.
-OP cardiac follow up arranged
-ok for DC to home today
-d/w nursing
HPI: Zach is a 49-year-old male with no significant nature presents to ER for evaluation of worsening shortness of breath with exertion. He typically is very active and runs on a daily basis. 2 weeks ago he started to notice that he was becoming
more winded when running. He cut down the speed with which he was running, but continued to have symptoms. Then this week he states he was unable to tolerate running at all due to significant shortness of breath. This morning he woke up and felt
short of breath and significantly anxious, prompting ER evaluation. In ER, he was noted to be hypertensive and tachycardic. Lab work revealed elevated proBNP of 4300 with a troponin of 0.031. D-dimer also elevated slightly at 0.66. He had chest
x-ray and CT of chest. CT of chest was negative for PE, but did note moderate CHF. EKG revealed sinus tachycardia with heart rates in the 120s. He has been persistently tachycardic on review of telemetry. He denies any chest pain, palpitations,
dizziness, lightheadedness, lower extremity edema, diaphoresis, nausea, or fevers. He did have flulike symptoms 2 weeks ago that improved after a few days. He notes no prior history of hypertension, but states recently when he was at his dentist
his blood pressure was elevated. In ER currently he feels fairly well, but is somewhat anxious. Notes some improvement with his breathing in ER after given 1 dose of Lasix.
Progress Note - Fork Assembler
Subjective
Date of Service: December 09, 2024
Feeling well. Eager for discharge
Objective
Labs:
12/09/24 03:58
12/09/24 03:58
Labs
Hgb 16.0 g/dL (13.0-18.0) 12/09/24 03:58
Hct 44.8 % (39.0-52.0) 12/09/24 03:58
Plt Count 222 10^3/uL (130-400) 12/09/24 03:58
PT 15.5 Sec (11.4-14.6) H 12/06/24 07:40
INR 1.20 12/06/24 07:40
APTT 32.9 Sec (23.4-35.0) 12/06/24 07:40
Sodium 133 mmol/L (135-145) L 12/09/24 03:58
Potassium 4.0 mmol/L (3.5-5.1) 12/09/24 03:58
BUN 26 mg/dl (9-20) H 12/09/24 03:58
Creatinine 1.2 mg/dL (0.7-1.3) 12/09/24 03:58
Glucose 106 mg/dl (70-99) H 12/09/24 03:58
Vital Signs and I&O:
Vital Signs
Temp Pulse Resp BP Pulse Ox
98.4 F 95 18 107/85 98
12/09/24 11:52 12/09/24 11:02 12/09/24 11:52 12/09/24 11:02 12/09/24 11:52
Vital Signs
Temp Pulse Resp BP Pulse Ox
98.4 F 95 18 107/85 98
12/09/24 11:52 12/09/24 11:02 12/09/24 11:52 12/09/24 11:02 12/09/24 11:52
Intake & Output
12/07/24 12/08/24 12/09/24 12/10/24
07:59 07:59 07:59 07:59
Intake Total 1500 / 1560 1660 / 1660 1464 / 1464
Output Total 2475 / 2475 1850 / 1850 2750 / 2750
Balance -975 / -915 -190 / -190 -1286 / -1286
Physical Exam
Physical Exam
GEN: No distress, awake, alert, oriented x3. sitting in chair
HEENT: supple, anicteric, mmm, eomi
LUNGS: no audible wheezes
CV: Reg on tele
EXT: No cyanosis, clubbing, edema
NEURO: Gross non-focal
SKIN: Warm, pink, dry. no rash
--- NOTE | 2024-12-09 13:12 | W.PN.HOSP.TC ---
Today's Communication/Plan
-
Medical therapy with diuretics, antiplatelet agents, beta-georgina, high-dose statin
Outpatient further management with Aldactone/SGLT2 inhibitor
Repeat echo as outpatient
Assessment / Plan
Assessment / Plan
Gen-AAOx3, NAD
HEENT-NC, AT, anicteric, clear oral mm
Neck-supple
CV-reg, no M, +S1/S2
Lungs-clear B/L
Abd-soft, NT, ND
Ext-no edema
Musculoskeletal-no cyanosis, clubbing
Skin-warm and dry
Neuro-grossly non-focal
Psych-calm, cooperative
#Acute HFrEF
#CAD status post KIM
#Ischemic cardiomyopathy
Mild sinus tachycardia
Continue IV Lasix. Weight is down since admission. Transition to p.o. diuretics per cardiology.
Echocardiogram shows LVEF 20%, global hypokinesis, severely reduced left ventricular systolic function, severely dilated LA, moderate TR. PA pressure 70 to 75 mmHg.
Right heart catheterization completed, PCWP 31, cardiac index 1.7. [place] catheter removed
EKG with sinus tachycardia, left atrial enlargement. Nonspecific ST-T wave changes laterally. Troponin negative.
CT chest negative for pulmonary embolism, cardiomegaly and moderate pulmonary edema noted. Small right pleural effusion. Small amount of coronary calcification.
Status post heart catheterization with KIM to mid LAD. Continue with aspirin. Patient was on Brilinta which was discontinued and plan to start patient on Plavix loading dose starting tomorrow 600 mg then daily subsequently afterwards. continue
with high-dose statin
IV Lasix has been transitioned to p.o. diuretics
Probably require follow-up echocardiogram to assess for if any improvement ejection fraction to decide on ICD.
Elevated blood pressure -likely undiagnosed and untreated essential hypertension. Recommend monitoring blood pressure closely.
Blood pressure now improving on losartan 25 mg twice daily. Coreg dose increased to 3.125 mg twice daily.
Hyponatremia -suspect related to heart failure. Sodium improved to 135. Resolved
Hyperglycemia -likely stress response. Hemoglobin A1c 5.4%.
Full code
d.w with cardiology
More than 30 minutes spent in discharge including
Final examination of the patient
Summarizing hospital stay
Instructions for continuing care to all relevant caregivers
Preparation of discharge records, prescriptions, and referral forms
Total time spent (in minutes): 52
Anticipated Discharge: Today
Subjective/Interval History
-
Date of Service: December 09, 2024
denies chest pain or sob
Objective Data
-
Labs:
Laboratory Results
12/09/24
03:58
WBC 10.3
Hgb 16.0
Hct 44.8
Plt Count 222
Sodium 133 L
Potassium 4.0
Chloride 98
Carbon Dioxide 23
BUN 26 H
Creatinine 1.2
Glucose 106 H
Calcium 9.0
Vital Signs:
Vital Signs
Temp Pulse Resp BP Pulse Ox
98.4 F 95 18 107/85 98
12/09/24 11:52 12/09/24 11:02 12/09/24 11:52 12/09/24 11:02 12/09/24 11:52
I&O
12/08/24 12/09/24 12/10/24
06:59 06:59 06:59
Intake Total 1670 / 1670 1464 / 1464
Output Total 1850 / 1850 2750 / 2750
Balance -180 / -180 -1286 / -1286
--- NOTE | 2024-12-09 13:19 | W.DCSUMMARY ---
Discharge Summary
Discharge Data
Date of Admission: 12/05/24
Date of Discharge: 12/09/24
-
Pending Results: No
Hospital Course
49-year-old male who is presenting with complaints of dyspnea on exertion for x 2 weeks. Patient was found to be in severe heart failure exacerbation was started on IV diuretics. Patient was eval by cardiology. Patient with significant
improvement in weight loss with IV diuresis. Echocardiogram shows LVEF 20%, global hypokinesis, severely reduced left ventricular systolic function, severely dilated LA, moderate TR. PA pressure 70 to 75 mmHg. Right heart catheterization completed,
PCWP 31, cardiac index 1.7. EKG with sinus tachycardia, left atrial enlargement. Nonspecific ST-T wave changes laterally. Troponin negative. CT chest negative for pulmonary embolism, cardiomegaly and moderate pulmonary edema noted. Small right
pleural effusion. Small amount of coronary calcification. Status post heart catheterization with KIM to mid LAD. Continue with aspirin. Patient was on Brilinta which was discontinued and plan to start patient on Plavix loading dose starting
tomorrow 600 mg then daily subsequently afterwards. continue with high-dose statin. IV Lasix has been transitioned to p.o. diuretics. Upon discharge patient will be discharged on Lasix 40 mg p.o. twice daily for 3 days then 40 mg daily. Patient
was referred to cardiac rehabilitation. Patient will follow-up outpatient with cardiology.
Discharge Plan
-
Patient Disposition: Home (Routine Discharge)
Discharge Diagnosis/Procedures: Acute systolic heart failure exacerbation
Coronary artery disease
Ischemic cardiomyopathy
S/P Angioplasty and stent to Left Anterior Descending artery
Primary hypertension
Hyponatremia
Condition: Fair
Diet: Low Cholesterol, 2 Gram Sodium and Restrict fluids to 64 oz
Driving Restrictions: No driving for 24 hours
Blood Work: BMP/proBNP in 1 week via primary doctor
Other Services: Cardiac Rehab
Specialty Instructions: Weigh Daily- Call MD for wt gain/loss 3 lbs overnight/5 lbs in 1 week
Activity Restrictions/Additional Instructions:
Please take 8 (EIGHT) 75mg tablets of plavix on 12/10 AM for total of 600mg then take 75mg daily (1 tablet) as of 12/11/24.
Please take lasix 40mg TWICE DAILY for 3 days then decrease to 40mg DAILY as of Sunday12/12/24.
Instructions: *[facility] Heart Failure Instructions
Stand Alone Forms: DC Instructions- Cath/EP Lab
Referrals:
Ammy Spencer CRNP [Specified Professional Personl] - 12/18/24 7:40 am (Cardiology followup appointment at the [place] office. Please call with questions. )
UNKNOWN - PT DOES,NOT KNOW [Family Provider] -
Prescriptions:
New
atorvastatin 80 mg Tablet
80 mg PO QPM Qty: 30 11RF
carvedilol 3.125 mg Tablet
3.125 mg PO BID Qty: 60 11RF
pantoprazole 40 mg Tablet,Delayed Release (Dr/Ec)
40 mg PO DAILY Qty: 30 11RF
losartan 25 mg Tablet
25 mg PO BID Qty: 60 11RF
aspirin 81 mg Tablet,Chewable
81 mg PO DAILY Qty: 30 11RF
furosemide [Lasix] 40 mg tablet
40 mg PO DAILY Qty: 30 11RF
Rx Instructions:
Please take 40mg TWICE DAILY for 3 days then decrease to 40mg daily!
clopidogrel [Plavix] 75 mg tablet
75 mg PO DAILY Qty: 30 11RF
Rx Instructions:
Please take 8 tablets tomorrow, 12/10/24 for total of 600 mg as a load. Then continue 75 mg daily as of 12/11/2024
Continued
therapeutic multivitamin Tablet
1 tab PO DAILY
Discharge Orders:
Discharge Patient (As Directed); Ordered 12/09/24
Ordered By: Bird Escobar
Care Plan Goals
Care Plan Goals:
Problem: Readiness for enhanced knowledge related to diagnosis and treatment plan
Goal: Understand your diagnosis and treatment plan needs, including medications if applicable.
Instructions: Know your diagnosis, underlying causes and treatment plan options, including medications if applicable. Consult with your health care team to learn about your diagnosis and treatment plan, including medications if applicable.
Discharge Date and Time
Discharge Date/Time: 12/09/24 14:17
Print Language: ICELANDIC
--- NOTE | 2024-12-09 14:14 | PTCARENOTE ---
D/C instructions reviewed with Pt, Pt expressed understanding. Pt to drive himself home, it has been over 24 hrs since he had sedation.
== END 2024-12-09 14:17 | disposition home or self-care (01) | DRG 321 ==
LOC: IVU 10:36
PROVIDERS: Internal Medicine Cardiovascular Disease; Internal Medicine Interventional Cardiology; Nurse Practitioner; Physician Assistant; ADMITTING PHYSICIAN Hospitalist; ATTENDING PHYSICIAN Hospitalist; CONSULT PHYSICIAN Internal Medicine Cardiovascular Disease; EMERGENCY PHYSICIAN Emergency Medicine; OTHER PHYSICIAN Internal Medicine Critical Care Medicine
PROC: 4A023N6 Measurement of Cardiac Sampling and Pressure, Right Heart, Percutaneous Approach (ICD-10-PCS; 2024-12-05)
PROC: B2111ZZ Fluoroscopy of Multiple Coronary Arteries using Low Osmolar Contrast (ICD-10-PCS; 2024-12-08)
PROC: 4A023N7 Measurement of Cardiac Sampling and Pressure, Left Heart, Percutaneous Approach (ICD-10-PCS; 2024-12-08)
PROC: 027034Z Dilation of Coronary Artery, One Artery with Drug-eluting Intraluminal Device, Percutaneous Approach (ICD-10-PCS; 2024-12-08)
DX: I11.0 Hypertensive heart disease with heart failure (principal); I50.23 Acute on chronic systolic (congestive) heart failure; E87.1 Hypo-osmolality and hyponatremia; I25.10 Atherosclerotic heart disease of native coronary artery without angina pectoris; I25.5 Ischemic cardiomyopathy; Z87.891 Personal history of nicotine dependence; Z88.1 Allergy status to other antibiotic agents; Z82.49 Family history of ischemic heart disease and other diseases of the circulatory system; I50.82 Biventricular heart failure; I27.20 Pulmonary hypertension, unspecified; Z11.52 Encounter for screening for COVID-19; E87.8 Other disorders of electrolyte and fluid balance, not elsewhere classified; I07.1 Rheumatic tricuspid insufficiency
CPT/HCPCS: 71045; 71046; 71275; 80048; 80053; 80061; 82248; 83036; 83735; 83880; 83930; 83935; 84300; 84443; 84484; 85025; 85027; 85347; 85379; 85610; 85652; 85730; 86140; 87502; 87811; 92978; 93005; 93306; 93451; 93458; 93970; 96374; 99152; 99153; 99285; C1725; C1753; C1769; C1874; C1887; C1894; C9600; Q9967

== ENCOUNTER → 2025-03-09 08:04 | Outpatient (REF) | payer BC, SELFPAY | LOC: HWRCS 08:04 | PROVIDERS: ATTENDING PHYSICIAN Nurse Practitioner | DX: I25.5 Ischemic cardiomyopathy (principal) | CPT/HCPCS: 93306 ==